=== PATIENT | female | born 1940 | race Two or more races ===

== ENCOUNTER 2018-05-22 14:50 | Inpatient (IN) | payer MEDICARE, MEDICAID ==
[~2018-05-22] VITALS: Ht 152.4 cm; Wt 53.5 kg
[2018-05-22] MEDS ORDERED: LORA-259 PO (15:03)
[2018-05-22] MEDS ORDERED: IV NORMAL SALINE 1000 ML BAG IV ONE (15:30)
[2018-05-22] MEDS ORDERED: ONDANSETRON 4 MG/2 ML VIAL IV ONE (15:30)
--- NOTE | 2018-05-22 15:30 | NUR ---
PT REFUSED CT SCAN.
[2018-05-22 15:39] LABS: BASOPHILS % (AUTO) 0.2 % (0.0-2.0); EOSINOPHILS % (AUTO) 0.4 % (0.0-7.0); HEMATOCRIT 26.5 % (31.2-41.9); HEMOGLOBIN 8.5 g/dL (10.9-14.3); LYMPHOCYTES # (AUTO) 0.6 K/uL (20.0-40.0); MEAN CORPUSCULAR HEMOGLOBIN 26.7 uug (24.7-32.8); MEAN CORPUSCULAR HGB CONC 32 g/dL (32.3-35.6); MEAN CORPUSCULAR VOLUME 83.7 fL (75.5-95.3); MONOCYTES # (AUTO) 0.3 K/uL (2.0-10.0); MONOCYTES % (AUTO) 4.8 % (0.0-11.0); NEUTROPHILS # (AUTO) 5.6 K/uL (1.8-8.9); NEUTROPHILS % (AUTO) 85.6 % (38.5-71.5); PLATELET COUNT (AUTO) 279 K/uL (179-408); RED BLOOD CELL COUNT(AUTO) 3.17 MIL/uL (3.63-4.92); WHITE BLOOD COUNT (AUTO) 6.5 K/uL (3.8-11.8)
[2018-05-22 16:00] LABS: CARBON DIOXIDE 29 mmol/L (21-32); CHLORIDE 106 mmol/L (98-107); CREATININE 0.5 mg/dL (0.6-1.3); GLUCOSE 100 mg/dL (74-106); POTASSIUM 3.9 mmol/L (3.5-5.1); UREA NITROGEN, BLOOD 7 mg/dL (7-18)
[2018-05-22 16:02] LABS: *BILIRUBIN,URIN NEGATIVE (NEGATIVE); *BLOOD, URINE NEGATIVE (NEGATIVE); *CLARITY,URINE CLEAR (CLEAR); *COLOR,URINE LIGHT YELLOW (YELLOW); *KETONES,URINE NEGATIVE (NEGATIVE); *PROTEIN,URINE NEGATIVE (NEGATIVE); *UROBILINOGEN,URINE 0.2 E.U./dl (NORMAL); LEUKOCYTE ESTERASE ,URINE NEGATIVE (NEGATIVE); NITRITE, URINE NEGATIVE (NEGATIVE); PH,URINE 8.5 (5.0-8.0); UGLUCOSE NEGATIVE (NEGATIVE)
[2018-05-22 16:05] LABS: ALANINE AMINOTRANSFERASE 23 U/L (14-59); ALKALINE PHOSPHATASE 70 U/L (50-136); ASPARTATE AMINOTRANSFERASE 22 U/L (15-37); BILIRUBIN,DIRECT 0.1 mg/dL (0.0-0.2); BILIRUBIN,TOTAL 0.3 mg/dL (0.2-1.0); LIPASE 197 U/L (73-393); TOTAL PROTEIN, SERUM 5.8 g/dL (6.4-8.2)
[2018-05-22 16:16] LABS: SQUAMOUS EPITHELIAL CELL,UR FEW /HPF (NONE SEEN); WBC,URINE 0-3 /HPF (0-3)
[2018-05-22] MEDS ORDERED: ONDANSETRON 4 MG/2 ML VIAL ONE ×4 (16:41→21:13)
[2018-05-22] MEDS ORDERED: PANTOPRAZOLE SODIUM 40 MG VIAL ONE ×2 (16:57→18:30)
[2018-05-22] MEDS ORDERED: PANTOPRAZOLE SODIUM IV 40 MG in IV DEXTROSE 5% 100 ML IV ONE (17:00)
[2018-05-22] MEDS ORDERED: MORPHINE SULFATE 4 MG/1 ML DISP.SYRIN ONE ×2 (17:17→18:29)
[2018-05-22] MEDS ORDERED: MORPHINE SULFATE 4 MG/1 ML DISP.SYRIN IV ONE (17:30)
[2018-05-22] MEDS ORDERED: ONDANSETRON IV *ER 4 MG/2 ML VIAL IV ONE ×2 (17:30→21:15)
--- NOTE | 2018-05-22 20:31 | NUR ---
Pt awake, alert, oriented x3. No sob noted. No s/sx of distress noted. Pt is crying, reassured and redirected. pt stated that she took Tylenol 650mg PO at 1900 without telling the nurse. will cont to monitor. Call light within reach.
--- NOTE | 2018-05-22 21:49 | NUR ---
Pt is nauseated. Zofran is given. MD at bedside, explained to pt and son plan of care. Pt and son verbalized understanding. Pt needs reenforcement of instructions re: NPO status. Report given to MAL Reis. Will cont to monitor.
--- NOTE | 2018-05-22 21:50 | NUR ---
Pt refused to change into a gown. pt refused to receive any pain medication through the IV at this time; pt stated "in an hour."
--- NOTE | 2018-05-22 22:23 | NUR ---
Pt. admitted to [facility] , under care of Dr. Serra Belongs List completed
[2018-05-22 22:30] VITALS: BP 116/43
[2018-05-22] MEDS ORDERED: methylPREDNISolone SOD SUCC 125 MG/2 ML VIAL IV ONE (23:15)
[2018-05-22] MEDS ORDERED: MORPHINE SULFATE 4 MG/1 ML DISP.SYRIN IV PRN (23:15)
[2018-05-22] MEDS ORDERED: Z GUARD REMEDY PASTE 57 GM TUBE TOP PRN (23:15)
[2018-05-22] MEDS ORDERED: ACETAMINOPHEN 650 MG SUPP.RECT RC PRN (23:15)
[2018-05-22] MEDS ORDERED: ONDANSETRON 4 MG/2 ML VIAL IV PRN (23:15)
[2018-05-23] MEDS ORDERED: LORAZEPAM 2 MG/1 ML VIAL IV PRN
[2018-05-23] MEDS: IV D5/ 0.9% NACL 1,000 ML IV PRN ×2 (00:29→11:05)
[2018-05-23 04:00] VITALS: BP 115/37
[2018-05-23] MEDS ORDERED: methylPREDNISolone SOD SUCC 125 MG/2 ML VIAL IV SCH (06:00)
--- NOTE | 2018-05-23 07:25 | NUR ---
NURSING NOTES ADMITTED PATIENT TO ROOM 210' REFUSED TO WEAR HOSP GOWN BUT PUT IT ON TOP OF HER CLOTHES; NEW IV PLACED TO RIGHT WRIST G22, PREVIOUS IV TISSUED; INSTRUCTED TO ELEVATE; PT ANXIOUS AND ALSO NPO, REFERRED TO DR GROVE AND ORDERED ATIVAN AND IVF; REFUSED AM LABS AT THIS TIME; NODULIZER INSTRUCTED TO COME BACK. KUB FF THROUGH ONGOING; ENDORSED TO NURSE COHEN FOR CONTINUITY OF CARE; CONTINUE PLAN OF CARE.
[2018-05-23] MEDS ORDERED: PANTOPRAZOLE SODIUM 40 MG VIAL IV SCH (09:00)
[2018-05-23] MEDS: AZATHIOPRINE 50 MG TABLET PO SCH ×2 (09:00→10:47)
[2018-05-23 11:35] VITALS: BP 132/27
--- NOTE | 2018-05-23 13:32 | NUR ---
RECEIVED PT FROM PREVIOUS NURSE. PT IS VERY ANXIOUS AND TALKATIVE, AND WANTS TO GO AMA. PT EDUCATION DONE WITH PT ABOUT HER CONDITION, BUT PT INSIST ON LEAVING. CHARGE NURSE SPOKE WITH PT, WELL NURSE PARTITIONER AND STUDENT CUSTOMER STRATEGY MANAGER. EDUCATION DONE WITH PT SON, WHO IS AGREEING TO TAKE HER HOME. PT LEAVING WITH SON AMA.
== END 2018-05-23 13:50 | disposition left against medical advice (07) | DRG 386 ==
LOC: ER 14:50 → MED 22:03
PROVIDERS: ADMIT Nurse Practitioner Acute Care; ATTEND Registered Nurse
DX: K50.912 Crohn's disease, unspecified, with intestinal obstruction (principal); E44.1 Mild protein-calorie malnutrition; D63.8 Anemia in other chronic diseases classified elsewhere; Z68.23 Body mass index [BMI] 23.0-23.9, adult; Z82.49 Family history of ischemic heart disease and other diseases of the circulatory system; F41.9 Anxiety disorder, unspecified; K57.30 Diverticulosis of large intestine without perforation or abscess without bleeding; Z90.49 Acquired absence of other specified parts of digestive tract
CPT/HCPCS: 36415; 70030-TC; 83690; 85025; 85730; 93005; A4663; C9113; J2060; J2270; J2405; J2930; J7030; J7042; J7500

== ENCOUNTER 2018-12-12 19:41 | Inpatient (IN) | payer MEDICARE, MEDICAID ==
[~2018-12-12] VITALS: Ht 137.2 cm; Wt 46.3 kg
[~2018-12-12 19:41] MED LIST: LORA-259 PO
--- NOTE | 2018-12-12 20:00 | NUR ---
Dr. Cohn at bedside for MSE.
[2018-12-12] MEDS ORDERED: HYDROMORPHONE 1 MG/1 ML DISP.SYRIN IV ONE (20:15)
[2018-12-12] MEDS ORDERED: ONDANSETRON 4 MG/2 ML VIAL IV ONE (20:15)
[2018-12-12] MEDS ORDERED: ONDANSETRON 4 MG/2 ML VIAL ONE (20:24)
[2018-12-12] MEDS ORDERED: HYDROMORPHONE 1 MG/1 ML DISP.SYRIN ONE (20:24)
[2018-12-12 20:31] LABS: BASOPHILS % (AUTO) 0.1 % (0.0-2.0); EOSINOPHILS % (AUTO) 0.2 % (0.0-7.0); HEMATOCRIT 34.7 % (31.2-41.9); HEMOGLOBIN 10.8 g/dL (10.9-14.3); LYMPHOCYTES # (AUTO) 0.4 K/uL (20.0-40.0); LYMPHOCYTES % (AUTO) 3.7 % (20.5-51.5); MEAN CORPUSCULAR HEMOGLOBIN 25.2 uug (24.7-32.8); MEAN CORPUSCULAR HGB CONC 31 g/dL (32.3-35.6); MEAN CORPUSCULAR VOLUME 81.5 fL (75.5-95.3); MONOCYTES # (AUTO) 0.4 K/uL (2.0-10.0); MONOCYTES % (AUTO) 3.6 % (0.0-11.0); NEUTROPHILS # (AUTO) 10.5 K/uL (1.8-8.9); NEUTROPHILS % (AUTO) 92.4 % (38.5-71.5); PLATELET COUNT (AUTO) 239 K/uL (179-408); RED BLOOD CELL COUNT(AUTO) 4.26 MIL/uL (3.63-4.92); WHITE BLOOD COUNT (AUTO) 11.4 K/uL (3.8-11.8)
--- NOTE | 2018-12-12 20:38 | NUR ---
Pt provided urine sample, sent to lab.
[2018-12-12 20:39] LABS: CARBON DIOXIDE 31 mmol/L (21-32); CHLORIDE 100 mmol/L (98-107); CREATININE 0.5 mg/dL (0.6-1.3); GLUCOSE 107 mg/dL (74-106); POTASSIUM 3.7 mmol/L (3.5-5.1); UREA NITROGEN, BLOOD 12 mg/dL (7-18)
[2018-12-12] MEDS ORDERED: IV D5W-0.45% NS +20 KCL 1,000 ML IV ONE (20:40)
--- NOTE | 2018-12-12 20:42 | NUR ---
Pt out of ER for CT.
[2018-12-12 20:44] LABS: *BILIRUBIN,URIN NEGATIVE (NEGATIVE); *BLOOD, URINE NEGATIVE (NEGATIVE); *KETONES,URINE 1+ (NEGATIVE); *UROBILINOGEN,URINE 0.2 E.U./dl (NORMAL); LEUKOCYTE ESTERASE ,URINE 1+ (NEGATIVE); NITRITE, URINE NEGATIVE (NEGATIVE); PH,URINE 7.5 (5.0-8.0); UGLUCOSE NEGATIVE (NEGATIVE)
[2018-12-12 20:45] LABS: ALANINE AMINOTRANSFERASE 30 U/L (14-59); ALKALINE PHOSPHATASE 89 U/L (50-136); ASPARTATE AMINOTRANSFERASE 35 U/L (15-37); BILIRUBIN,DIRECT 0.1 mg/dL (0.0-0.2); BILIRUBIN,TOTAL 0.3 mg/dL (0.2-1.0); LIPASE 122 U/L (73-393); TOTAL PROTEIN, SERUM 6.2 g/dL (6.4-8.2)
[2018-12-12 20:51] LABS: *CLARITY,URINE CLOUDY (CLEAR); *COLOR,URINE YELLOW (YELLOW)
[2018-12-12 20:52] LABS: RBC,URINE 0-3 /HPF (0-3)
[2018-12-12 20:53] LABS: SQUAMOUS EPITHELIAL CELL,UR MANY /HPF (NONE SEEN); URINE AMORPHOUS PHOSPHATES MANY /HPF
--- NOTE | 2018-12-12 20:54 | NUR ---
Pt back to ER from CT.
--- NOTE | 2018-12-12 21:40 | NUR ---
Dr. Cohn on panel call with Sofía Sánchez NP. Patient accepted for admission to [facility], diagnosis: bowel obstruction.
--- NOTE | 2018-12-12 21:43 | NUR ---
Dr. Cohn speaking with Dr. Art Long general surgery.
--- NOTE | 2018-12-12 21:46 | NUR ---
Report given to Selma RESENDEZ Medsurg.
[2018-12-12] MEDS ORDERED: IV NS 1000 ML 1,000 ML IV PRN (22:02)
[2018-12-12] MEDS ORDERED: MAGNESIUM HYDROXIDE 30 ML LIQUID UDC PO PRN (22:15)
[2018-12-12] MEDS ORDERED: CEFTRIAXONE 1 G in IV DEXTROSE 5% 50 ML IV SCH (22:15)
[2018-12-12] MEDS ORDERED: ONDANSETRON 4 MG/2 ML VIAL IV PRN (22:15)
[2018-12-12] MEDS ORDERED: METOCLOPRAMIDE HCL 10 MG/2 ML VIAL IV PRN (22:15)
[2018-12-12] MEDS ORDERED: ACETAMINOPHEN 325 MG TABLET PO PRN (22:15)
[2018-12-12] MEDS ORDERED: Z GUARD REMEDY PASTE 57 GM TUBE TOP PRN (22:15)
[2018-12-12] MEDS ORDERED: LORAZEPAM 2 MG/1 ML VIAL IV PRN (22:30)
--- NOTE | 2018-12-12 22:38 | NUR ---
received pt from er via stretcher to room 319 settled in well v/s and assessment done same stable,pt refuse ngt insertion and xray want to bret espinal md to see her in the morning first.
--- NOTE | 2018-12-12 22:40 | NUR ---
notified of pt refusal of care ,noted md stated she will see patient in am
--- NOTE | 2018-12-12 22:51 | NUR ---
daughter at bedside pt in no distress at this time
--- NOTE | 2018-12-13 | NUR ---
pt and daughter refuse ngt placement want to wait for md in am
[2018-12-13] MEDS ORDERED: CEFTRIAXONE 1 G VIAL ONE (00:58)
--- NOTE | 2018-12-13 04:00 | NUR ---
pt refuse blood draw
[2018-12-13 05:45] VITALS: BP 89/37
[2018-12-13] MEDS: MORPHINE SULFATE 2 MG/1 ML DISP.SYRIN IV PRN ×2 (06:54→11:51)
--- NOTE | 2018-12-13 07:00 | NUR ---
pt c/o abdominal pain requested morphine same given for abdominal pain
[2018-12-13] MEDS ORDERED: PANTOPRAZOLE SODIUM 40 MG VIAL IV SCH (09:00)
[2018-12-13] MEDS ORDERED: FAMOTIDINE. 20 MG/2 ML VIAL IV SCH (15:45)
[2018-12-13 16:00] VITALS: BP 114/44
[2018-12-13] MEDS ORDERED: NITR100C11 PO (16:22)
--- NOTE | 2018-12-13 16:30 | NUR ---
NG TUBE D/C'D DR. KAT IN TO SEE PT. AND REVIEW ALL FOLLOW-UP AND HOME CARE IV D/C'D PHARMACIST IN TO REVIEW ALL HOME MEDS HOME INSTRUCTIONS REVIEWED WITH PT. AND PT'S. DAUGHTER 1700 DISCHARGED TO DAUGHTER TO HOME.
[2018-12-13] MEDS ORDERED: LORAZEPAM 1 MG TABLET PO SCH (21:00)
[2018-12-13] MEDS ORDERED: DOCUSATE SODIUM 250 MG CAPSULE PO SCH (21:00)
== END 2018-12-13 17:00 | disposition home or self-care (01) | DRG 386 ==
LOC: ER 19:43 → MEDSURG3 21:51
PROVIDERS: ADMIT Registered Nurse; ATTEND Internal Medicine
PROC: 0D9670Z Drainage of Stomach with Drainage Device, Via Natural or Artificial Opening (ICD-10-PCS; principal; 2018-12-13)
DX: K50.912 Crohn's disease, unspecified, with intestinal obstruction (principal); E44.1 Mild protein-calorie malnutrition; N39.0 Urinary tract infection, site not specified; Z90.49 Acquired absence of other specified parts of digestive tract; D63.8 Anemia in other chronic diseases classified elsewhere; Z68.24 Body mass index [BMI] 24.0-24.9, adult; I70.0 Atherosclerosis of aorta; M81.0 Age-related osteoporosis without current pathological fracture; K56.41 Fecal impaction; D50.9 Iron deficiency anemia, unspecified; G47.00 Insomnia, unspecified
CPT/HCPCS: 36415; 71045; 83690; 85025; 87086; A4663; G0378; J0696; J1170; J2270; J2405; J3490; J7030; J7060

== ENCOUNTER 2019-03-04 19:16 | Inpatient (IN) | payer MEDICARE, MEDICAID ==
[~2019-03-04] VITALS: Ht 137.2 cm; Wt 45.8 kg
[~2019-03-04 19:16] MED LIST changes: +NITR100C11 PO
[2019-03-04] MEDS ORDERED: MAGN296S70 PO (19:41)
[2019-03-04] MEDS ORDERED: POLY17PO4 PO (19:41)
[2019-03-04] MEDS ORDERED: DOCU-141 PO (19:41)
[2019-03-04] MEDS ORDERED: LORA1TAB PO (19:42)
[2019-03-04] MEDS ORDERED: ONDANSETRON 4 MG/2 ML VIAL IV ONE (20:15)
[2019-03-04] MEDS ORDERED: IV NORMAL SALINE 1000 ML BAG IV ONE (20:15)
[2019-03-04 20:28] LABS: *BILIRUBIN,URIN NEGATIVE (NEGATIVE); *BLOOD, URINE NEGATIVE (NEGATIVE); *CLARITY,URINE SLIGHTLY CLOUDY (CLEAR); *COLOR,URINE YELLOW (YELLOW); *KETONES,URINE 1+ (NEGATIVE); *UROBILINOGEN,URINE 0.2 E.U./dl (NORMAL); LEUKOCYTE ESTERASE ,URINE TRACE (NEGATIVE); NITRITE, URINE NEGATIVE (NEGATIVE); PH,URINE 8.5 (5.0-8.0); UGLUCOSE NEGATIVE (NEGATIVE)
[2019-03-04] MEDS ORDERED: ONDANSETRON 4 MG/2 ML VIAL ONE (20:28)
[2019-03-04 20:36] LABS: BASOPHILS % (AUTO) 0.2 % (0.0-2.0); HEMATOCRIT 29.2 % (31.2-41.9); HEMOGLOBIN 8.8 g/dL (10.9-14.3); LYMPHOCYTES # (AUTO) 0.5 K/uL (20.0-40.0); LYMPHOCYTES % (AUTO) 4.2 % (20.5-51.5); MEAN CORPUSCULAR HEMOGLOBIN 23.8 uug (24.7-32.8); MEAN CORPUSCULAR HGB CONC 30 g/dL (32.3-35.6); MONOCYTES # (AUTO) 0.3 K/uL (2.0-10.0); MONOCYTES % (AUTO) 2.9 % (0.0-11.0); NEUTROPHILS # (AUTO) 10.1 K/uL (1.8-8.9); NEUTROPHILS % (AUTO) 92.7 % (38.5-71.5); PLATELET COUNT (AUTO) 253 K/uL (179-408); WHITE BLOOD COUNT (AUTO) 10.9 K/uL (3.8-11.8)
[2019-03-04 20:43] LABS: ALANINE AMINOTRANSFERASE 22 U/L (14-59); ALKALINE PHOSPHATASE 71 U/L (50-136); ASPARTATE AMINOTRANSFERASE 22 U/L (15-37); BILIRUBIN,DIRECT 0.1 mg/dL (0.0-0.2); BILIRUBIN,TOTAL 0.3 mg/dL (0.2-1.0); CARBON DIOXIDE 33 mmol/L (21-32); CHLORIDE 104 mmol/L (98-107); CREATININE 0.6 mg/dL (0.6-1.3); GLUCOSE 144 mg/dL (74-106); LIPASE 247 U/L (73-393); MUCUS,URINE MODERATE /LPF (0-FEW); POTASSIUM 3.9 mmol/L (3.5-5.1); SQUAMOUS EPITHELIAL CELL,UR MODERATE /HPF (NONE SEEN); UREA NITROGEN, BLOOD 10 mg/dL (7-18); URINE AMORPHOUS PHOSPHATES MODERATE /HPF
[2019-03-04] MEDS ORDERED: PANTOPRAZOLE SODIUM 40 MG VIAL IV ONE (20:45)
[2019-03-04] MEDS ORDERED: PANTOPRAZOLE SODIUM 40 MG VIAL ONE (20:49)
[2019-03-04 20:55] LABS: BAND % (MANUAL) 4 % (0-10); LYMPHOCYTES % (MANUAL) 8 % (20-40); MONOCYTES % (MANUAL) 2 % (2-10); NEUTROPHILS % (MANUAL) 86 % (42-75)
[2019-03-04] MEDS ORDERED: PIPERACILLIN SODIUM/TAZOBACTAM 3.375 G in IV DEXTROSE 5% 50 ML IV ONE (21:00)
[2019-03-04] MEDS ORDERED: MORPHINE SULFATE 4 MG/1 ML DISP.SYRIN IV ONE (21:00)
[2019-03-04] MEDS ORDERED: MORPHINE SULFATE 4 MG/1 ML DISP.SYRIN ONE (21:03)
[2019-03-04] MEDS ORDERED: PIPERACILLIN SODIUM/TAZO 3.375 GM VIAL ONE (21:08)
[2019-03-04] MEDS ORDERED: ACETAMINOPHEN 325 MG TABLET PO PRN (21:30)
[2019-03-04] MEDS ORDERED: MORPHINE SULFATE 2 MG/1 ML DISP.SYRIN IV PRN (21:30)
[2019-03-04] MEDS ORDERED: Z GUARD REMEDY PASTE 57 GM TUBE TOP PRN (21:30)
[2019-03-04] MEDS ORDERED: IV NS 1000 ML 1,000 ML IV PRN (21:30)
[2019-03-04] MEDS ORDERED: ONDANSETRON 4 MG/2 ML VIAL IV PRN (21:30)
[2019-03-04] MEDS ORDERED: MAGNESIUM HYDROXIDE 30 ML LIQUID UDC PO PRN (21:30)
[2019-03-04] MEDS ORDERED: LORAZEPAM 2 MG/1 ML VIAL IV PRN (22:15)
[2019-03-04 22:21] VITALS: BP 116/45
[2019-03-04] MEDS ORDERED: MAGNESIUM CITRATE 296 ML BOTTLE PO SCH (22:30)
[2019-03-04] MEDS ORDERED: MIRALAX 17 GM POWD.PACK PO SCH (22:30)
[2019-03-05 05:00] VITALS: BP 99/45
[2019-03-05] MEDS ORDERED: MAGNESIUM CITRATE 296 ML BOTTLE PO PRN (08:30)
[2019-03-05] MEDS ORDERED: FAMOTIDINE. 20 MG/2 ML VIAL IV SCH (09:00)
[2019-03-05] MEDS ORDERED: MORPHINE SULFATE 2 MG/1 ML DISP.SYRIN IV PRN (09:45)
[2019-03-05] MEDS ORDERED: DIATR MEGLU/DIATRIZOATE SODIUM 30 ML SOLUTION ONE (10:11)
[2019-03-05 11:08] VITALS: BP 94/38
[2019-03-05] MEDS ORDERED: DOCUSATE SODIUM 100 MG CAPSULE PO SCH (21:00)
== END 2019-03-05 12:30 | disposition home or self-care (01) | DRG 389 ==
LOC: ER 19:18 → MEDSURG3 21:46
PROVIDERS: ADMIT Nurse Practitioner Acute Care; ATTEND Nurse Practitioner Acute Care
DX: K56.609 Unspecified intestinal obstruction, unspecified as to partial versus complete obstruction (principal); K50.90 Crohn's disease, unspecified, without complications; N39.0 Urinary tract infection, site not specified; Z90.49 Acquired absence of other specified parts of digestive tract; G47.00 Insomnia, unspecified; D63.8 Anemia in other chronic diseases classified elsewhere; M81.0 Age-related osteoporosis without current pathological fracture; K29.70 Gastritis, unspecified, without bleeding; I70.0 Atherosclerosis of aorta; E88.09 Other disorders of plasma-protein metabolism, not elsewhere classified
CPT/HCPCS: 36415; 70030-TC; 71045; 83690; 85025; 85730; 93005; A4663; C9113; G0378; J2060; J2270; J2405; J2543; J7030; J7060; Q9963

== ENCOUNTER 2019-05-21 19:56 | Inpatient (IN) | payer MEDICARE, MEDICAID ==
[~2019-05-21] VITALS: Ht 152.4 cm; Wt 62.6 kg
[~2019-05-21 19:56] MED LIST changes: +DOCU-141 PO; -LORA-259 PO; +LORA1TAB PO; +MAGN296S70 PO; -NITR100C11 PO; +POLY17PO4 PO
[2019-05-21] MEDS ORDERED: ONDANSETRON 4 MG/2 ML VIAL ONE ×2 (20:33→23:10)
[2019-05-21] MEDS ORDERED: MORPHINE SULFATE 2 MG/1 ML DISP.SYRIN ONE (20:34)
[2019-05-21 20:41] LABS: CARBON DIOXIDE 32 mmol/L (21-32); CHLORIDE 99 mmol/L (98-107); CREATININE 0.5 mg/dL (0.6-1.3); GLUCOSE 109 mg/dL (74-106); POTASSIUM 4.5 mmol/L (3.5-5.1); UREA NITROGEN, BLOOD 10 mg/dL (7-18)
[2019-05-21 20:42] LABS: BASOPHILS # (AUTO) 0.1 K/uL (0.0-8.0); BASOPHILS % (AUTO) 0.6 % (0.0-2.0); EOSINOPHILS % (AUTO) 0.3 % (0.0-7.0); HEMATOCRIT 34.2 % (31.2-41.9); HEMOGLOBIN 10.2 g/dL (10.9-14.3); LYMPHOCYTES # (AUTO) 0.9 K/uL (20.0-40.0); LYMPHOCYTES % (AUTO) 9.3 % (20.5-51.5); MEAN CORPUSCULAR HEMOGLOBIN 23.2 uug (24.7-32.8); MEAN CORPUSCULAR HGB CONC 30 g/dL (32.3-35.6); MEAN CORPUSCULAR VOLUME 77.6 fL (75.5-95.3); MONOCYTES # (AUTO) 0.6 K/uL (2.0-10.0); MONOCYTES % (AUTO) 5.9 % (0.0-11.0); NEUTROPHILS # (AUTO) 8.1 K/uL (1.8-8.9); NEUTROPHILS % (AUTO) 83.9 % (38.5-71.5); PLATELET COUNT (AUTO) 294 K/uL (179-408); WHITE BLOOD COUNT (AUTO) 9.7 K/uL (3.8-11.8)
[2019-05-21 20:45] LABS: ALANINE AMINOTRANSFERASE 21 U/L (14-59); ALKALINE PHOSPHATASE 60 U/L (50-136); ASPARTATE AMINOTRANSFERASE 32 U/L (15-37); BILIRUBIN,DIRECT 0.1 mg/dL (0.0-0.2); BILIRUBIN,TOTAL 0.1 mg/dL (0.2-1.0); LIPASE 258 U/L (73-393); TOTAL PROTEIN, SERUM 6.3 g/dL (6.4-8.2)
[2019-05-21] MEDS ORDERED: ONDANSETRON 4 MG/2 ML VIAL IV ONE ×2 (20:45→23:00)
[2019-05-21] MEDS ORDERED: MORPHINE SULFATE 2 MG/1 ML DISP.SYRIN IV ONE (20:45)
--- NOTE | 2019-05-21 21:21 | NUR ---
Patient is resting comfortably in bed with eyes closed
[2019-05-21] MEDS ORDERED: MORPHINE SULFATE 4 MG/1 ML DISP.SYRIN IV ONE (22:30)
[2019-05-21] MEDS ORDERED: MORPHINE SULFATE 4 MG/1 ML DISP.SYRIN ONE (22:33)
[2019-05-21] MEDS ORDERED: HYDROMORPHONE 1 MG/1 ML DISP.SYRIN IV ONE (23:00)
[2019-05-21] MEDS ORDERED: IV NORMAL SALINE 1000 ML BAG IV ONE (23:00)
[2019-05-21] MEDS ORDERED: HYDROMORPHONE 1 MG/1 ML DISP.SYRIN ONE (23:10)
--- NOTE | 2019-05-22 00:10 | NUR ---
MADDIE CALLED FOR ADMISSION WAITING FOR CALLBACK
--- NOTE | 2019-05-22 00:25 | NUR ---
Pt. admitted to [facility], under care of FELICITA GROVE DNP Belongs List completed
--- NOTE | 2019-05-22 00:45 | NUR ---
PATIENT RECEIVED BY ER VIA [facility] WITH BELONGINGS, PATIENT IS ABLE TO AMBULATE ALONE, IS STEADY. PATIENT IS ALERT AND ORIENTED X 4 ABLE TO UNDERSTAND AND SPEAK YORUBA. PATIENT HAD 1 EPISODE OF VOMITING WHILE TRANSFERRING. PATIENT REFUSED TO PUT ON HOSPITAL GOWN SHE PREFERS TO WEAR OWN CLOTHES AT THIS TIME. SKIN ASSESSMENT DONE, NO SKIN ISSUES NOTED. PHYSICAL ASSESSMENT DONE, NOTED WITH MILD DISTENDED ABDOMEN . SHE IS COMPLAINING OF ABDOMEN DISCOMFORT, PLACED HOB SEMI FOWLERS,BED IN LOWEST POSITION , SIDE RAILS UP X 2, BED ALARM ON FOR SAFETY. ORIENTED PATIENT TO ROOM AND CALL LIGHT. CALL LIGHT PLACED WITHIN REACH.
[2019-05-22 01:30] VITALS: BP 145/59
[2019-05-22] MEDS ORDERED: IV D5 1/2 NS 1000 ML 1,000 ML IV PRN (02:17)
[2019-05-22] MEDS ORDERED: Z GUARD REMEDY PASTE 57 GM TUBE TOP PRN (02:30)
[2019-05-22] MEDS ORDERED: LORAZEPAM 1 MG TABLET PO PRN (02:30)
[2019-05-22] MEDS ORDERED: ONDANSETRON 4 MG/2 ML VIAL IV PRN (02:30)
[2019-05-22] MEDS ORDERED: ACETAMINOPHEN 325 MG TABLET PO PRN (02:30)
[2019-05-22] MEDS ORDERED: HYDROCODONE/APAP 5-325MG TABLET PO PRN (02:30)
[2019-05-22] MEDS ORDERED: FLEET ENEMA 133 ML BOTTLE RC ONE ×2 (02:30→03:24)
[2019-05-22] MEDS ORDERED: MORPHINE SULFATE 2 MG/1 ML DISP.SYRIN IV PRN (02:30)
--- NOTE | 2019-05-22 02:40 | NUR ---
PATIENT REFUSED TO TAKE MAGNESIUM CITRATE AND FLEET ENEMA THAT WAS ORDERED, EXPLAINED RISKS AND BENEFITS PATIENT UNDERSTANDS, PER PATIENT JUST WOULD LIKE TO SLEEP RIGHT NOW. WILL TRY AGAIN IN AM
[2019-05-22] MEDS ORDERED: MAGNESIUM CITRATE 296 ML BOTTLE PO ONE (02:45)
[2019-05-22] MEDS ORDERED: MAGNESIUM CITRATE 296 ML BOTTLE ONE (03:24)
[2019-05-22 05:24] VITALS: BP 126/51
--- NOTE | 2019-05-22 07:06 | NUR ---
PATIENT REFUSED BLOOD DRAW WOULD LIKE FOR THEM TO DRAW BLOOD AT 9AM. PATIENT C/O OF MILD DISCOMFORT OF ABDOMEN, 1 EPISODE OF EMESIS OF UNDIGESTED FOOD, NO BLOOD OR COFFEE GROUND EMESIS. ENDORSED TO AM SHIFT TO ENCOURAGED ENEMA AND MAGNESIUM CITRATE
--- NOTE | 2019-05-22 07:56 | NUR ---
Received pt. in bed, A/Ox4, Farsi speaking. No acute distress. On RA and tolerating well. LW 20G remain patent and intact, on D5 1/2NS @ 75ml/hr with no s/sx of fluid overload. All needs attended and met at this time. Safety measures in place. Will continue to monitor.
--- NOTE | 2019-05-22 08:15 | NUR ---
Pt. refusing care this AM. Refused Fleet enema and mag citrate x 3. Risk and benefits discussed with pt. No episode of N/V, IV fluid running on 75 ml/hr. Pt. adamant about discharging now, explained to patient discharge process and verbalized understanding. Pt. requested to sign AMA stated "My son is on his way to pick me up." Notified attending TESTING ANALYST and charge nurse promptly.
--- NOTE | 2019-05-22 09:30 | NUR ---
Discharge note: Pt. requested to be discharge home via AMA. STRAIGHT KNIFE MACHINE CUTTER aware and amenable. Pt's son at bedside agreeable. Pt. insisted to leave against medical advice even after providing risks that includes continued illness, worsening of symptoms, permanent disability, possibility of re-hospitalization and . Pt and family member made aware to call primary physician upon discharge. AMA form signed by pt., all pt. inventory provided. No further questions from resident and family member at this time. VS refused to be taken and skin assessment. IV access d/c and tolerated well. ID band removed. Resident left via wheelchair, no complaint of SOB, no change in LOC, no complaint of pain at this time.
== END 2019-05-22 09:30 | disposition left against medical advice (07) | DRG 389 ==
LOC: ER 19:59 → MEDSURG3 05-22 00:20
PROVIDERS: ADMIT Nurse Practitioner Acute Care; ATTEND Nurse Practitioner Acute Care
DX: K56.600 Partial intestinal obstruction, unspecified as to cause (principal); K50.90 Crohn's disease, unspecified, without complications; E44.1 Mild protein-calorie malnutrition; M81.0 Age-related osteoporosis without current pathological fracture; K83.8 Other specified diseases of biliary tract; K29.70 Gastritis, unspecified, without bleeding; I70.0 Atherosclerosis of aorta; Z68.27 Body mass index [BMI] 27.0-27.9, adult; Z90.49 Acquired absence of other specified parts of digestive tract; Z98.890 Other specified postprocedural states; Z91.19 Patient's noncompliance with other medical treatment and regimen
CPT/HCPCS: 36415; 70030-TC; 71045; 83690; 85025; 85730; 93005; A4663; G0378; J1170; J2270; J2405; J3490; J7030

== ENCOUNTER 2021-02-13 20:43 | Inpatient (IN) | payer MEDICARE, OTHER ==
[~2021-02-13] VITALS: Ht 142.2 cm; Wt 38.6 kg
[~2021-02-13 20:43] MED LIST changes: +PIPERACILLIN SODIUM/TAZOBACTAM 3.375 G in IV DEXTROSE 5% 50 ML IV SCH
--- NOTE | 2021-02-13 21:20 | NUR ---
MD Farooq at bedside to do MSE.
[2021-02-13] MEDS ORDERED: MORPHINE SULFATE 2 MG/1 ML DISP.SYRIN IV ONE ×2 (21:30→23:15)
[2021-02-13] MEDS ORDERED: IV NORMAL SALINE 1000 ML BAG IV ONE (21:30)
[2021-02-13] MEDS ORDERED: ONDANSETRON 4 MG/2 ML VIAL IV ONE (21:30)
[2021-02-13 21:52] LABS: HEMATOCRIT 36.2 % (31.2-41.9); MEAN CORPUSCULAR HEMOGLOBIN 26.9 uug (24.7-32.8); MEAN CORPUSCULAR VOLUME 84.7 fL (75.5-95.3); PLATELET COUNT (AUTO) 258 K/uL (179-408)
[2021-02-13 21:58] LABS: CREATININE 0.6 mg/dL (0.6-1.3); POTASSIUM 3.7 mmol/L (3.5-5.1)
[2021-02-13] MEDS ORDERED: MORPHINE SULFATE 2 MG/1 ML DISP.SYRIN ONE (21:58)
[2021-02-13 22:12] LABS: BILIRUBIN,DIRECT 0.2 mg/dL (0.0-0.2); BILIRUBIN,TOTAL 0.4 mg/dL (0.2-1.0); TOTAL PROTEIN, SERUM 5.5 g/dL (6.4-8.2)
--- NOTE | 2021-02-13 22:22 | NUR ---
Patient is resting comfortably in bed, with daughter at bedside.
--- NOTE | 2021-02-13 22:30 | NUR ---
Patient states great improvement in pain after morphine; denies pain. Improvement in N/V after administration of Zofran. States she no longer feels nauseous or vomits.
--- NOTE | 2021-02-13 22:58 | NUR ---
[facility] called for panel call, MD Gallagher paged.
--- NOTE | 2021-02-13 23:04 | NUR ---
instrument/control technician Russel called to notify patient is COVID negative.
--- NOTE | 2021-02-13 23:05 | NUR ---
MD Gallagher called back and connected to MD Farooq.
--- NOTE | 2021-02-13 23:10 | NUR ---
Patient c/o of 8/10 abdominal pain. MD Farooq made aware. Verbal orders for 1mg of morphine given.
[2021-02-13 23:15] LABS: *BILIRUBIN,URIN NEGATIVE (NEGATIVE); *CLARITY,URINE CLOUDY (CLEAR); *COLOR,URINE YELLOW (YELLOW); *KETONES,URINE 2+ (NEGATIVE); *UROBILINOGEN,URINE 0.2 E.U./dl (NORMAL); LEUKOCYTE ESTERASE ,URINE TRACE (NEGATIVE); NITRITE, URINE NEGATIVE (NEGATIVE); PH,URINE 8.5 (5.0-8.0); UGLUCOSE NEGATIVE (NEGATIVE)
--- NOTE | 2021-02-13 23:21 | NUR ---
Report given to MAL Reis.
[2021-02-13 23:25] LABS: *BLOOD, URINE TRACE (NEGATIVE); BACTERIA,URINE NONE SEEN /HPF (NONE SEEN); RBC,URINE 0-3 /HPF (0-3); SQUAMOUS EPITHELIAL CELL,UR FEW /HPF (NONE SEEN); URINE AMORPHOUS PHOSPHATES MANY /HPF; WBC,URINE 0-3 /HPF (0-3)
[2021-02-13] MEDS ORDERED: ACETAMINOPHEN 650 MG SUPP.RECT RC PRN (23:30)
[2021-02-13] MEDS ORDERED: ONDANSETRON 4 MG/2 ML VIAL IV PRN (23:30)
--- NOTE | 2021-02-13 23:40 | NUR ---
Pt. admitted to med-surg 310, under care of Dr. Gallagher Belongs List completed
[2021-02-14 00:18] VITALS: BP 112/37
[2021-02-14] MEDS ORDERED: PIPERACILLIN SODIUM/TAZO 3.375 GM VIAL ONE (00:49)
[2021-02-14] MEDS ORDERED: LORAZEPAM 2 MG/1 ML VIAL IV ONE (01:00)
--- NOTE | 2021-02-14 03:51 | NUR ---
admitted to room 310; ambulatory; AAOx4; able to make needs known; kept NPO; new IV to left forearm; ativan given x1 per WARD AIDE Ke.
[2021-02-14 04:09] VITALS: BP 132/51
--- NOTE | 2021-02-14 08:00 | NUR ---
Pt denies any c/o abd pain. Bowel wound present x 4 quadrants. SBF intiated. Implemented High Fowlers position to prevent any aspiration and discussed with Pt. Pt agreeable with plan of care. PT is in no acute distress.
[2021-02-14] MEDS: PIPERACILLIN SODIUM/TAZOBACTAM 3.375 G in IV DEXTROSE 5% 100 ML IV SCH ×2 (08:59→17:19)
[2021-02-14] MEDS ORDERED: PANTOPRAZOLE SODIUM 40 MG VIAL IV SCH (09:00)
[2021-02-14] MEDS ORDERED: PIPERACILLIN SODIUM/TAZOBACTAM 3.37 G in IV DEXTROSE 5% 100 ML IV SCH (09:00)
[2021-02-14] MEDS ORDERED: PIPERACILLIN SODIUM/TAZOBACTAM 3.375 G in IV DEXTROSE 5% 100 ML IV SCH (09:00)
[2021-02-14] MEDS ORDERED: DIATR MEGLU/DIATRIZOATE SODIUM 30 ML BOTTLE ONE (09:38)
[2021-02-14 11:43] VITALS: BP 126/55
--- NOTE | 2021-02-14 12:30 | NUR ---
Dr Steven Winters spoke with pt and family on updates and plan for today. No coughing noted or s/s of aspiration from contrast noted - high ott position effective. Kept pt NPO as ordered.
[2021-02-14] MEDS ORDERED: MORPHINE SULFATE 2 MG/1 ML DISP.SYRIN IV PRN (13:45)
[2021-02-14 15:29] VITALS: BP 122/43
--- NOTE | 2021-02-14 18:05 | NUR ---
Small bowel follow through result given to FELICITA no new order received. Reinforce with pt and family member NPO status. Pt verbalized understanding. PT is in no acute distress.
[2021-02-14] MEDS: IV D5/ 0.9% NACL 1,000 ML IV PRN ×2 (20:00)
[2021-02-14 20:14] VITALS: BP 145/54
--- NOTE | 2021-02-14 21:25 | NUR ---
Patient AAOX3, no sob, no c/o pain noted, Patient want discharge / call Dr Serra and ARIELLE. call to family / Adjory, Robbie ( son), D/C home with son
== END 2021-02-14 21:30 | disposition left against medical advice (07) | DRG 389 ==
LOC: ER 20:45 → MEDSURG3 23:27
PROVIDERS: ADMIT Nurse Practitioner Acute Care; ATTEND Nurse Practitioner Acute Care
DX: K56.600 Partial intestinal obstruction, unspecified as to cause (principal); N39.0 Urinary tract infection, site not specified; K50.90 Crohn's disease, unspecified, without complications; E88.09 Other disorders of plasma-protein metabolism, not elsewhere classified; K29.70 Gastritis, unspecified, without bleeding; M81.0 Age-related osteoporosis without current pathological fracture; Z90.49 Acquired absence of other specified parts of digestive tract; Z98.1 Arthrodesis status; D72.829 Elevated white blood cell count, unspecified; Z20.822 Contact with and (suspected) exposure to COVID-19; Z98.890 Other specified postprocedural states
CPT/HCPCS: 36415; 70030-TC; 71045; 74250; 83605; 83690; 85025; 93005; A4663; C9113; G0378; J2060; J2270; J2405; J2543; J7030; J7060; Q9963

== ENCOUNTER 2021-12-25 15:25 | Inpatient (IN) | payer MEDICARE, OTHER ==
[~2021-12-25] VITALS: Ht 144.8 cm; Wt 45.4 kg
[~2021-12-25 15:25] MED LIST changes: -MAGN296S70 PO; -PIPERACILLIN SODIUM/TAZOBACTAM 3.375 G in IV DEXTROSE 5% 50 ML IV SCH; -POLY17PO4 PO
[2021-12-25] MEDS ORDERED: MORPHINE SULFATE 2 MG/1 ML DISP.SYRIN IV ONE (15:45)
[2021-12-25] MEDS ORDERED: ONDANSETRON 4 MG/2 ML VIAL IV ONE ×2 (15:45→18:15)
[2021-12-25] MEDS ORDERED: IV NORMAL SALINE 1000 ML BAG IV ONE (15:45)
[2021-12-25] MEDS ORDERED: ONDANSETRON 4 MG/2 ML VIAL ONE ×2 (16:03→18:14)
[2021-12-25] MEDS ORDERED: MORPHINE SULFATE 2 MG/1 ML DISP.SYRIN ONE (16:03)
[2021-12-25 16:29] LABS: CARBON DIOXIDE 31 mmol/L (21-32); CHLORIDE 97 mmol/L (98-107); CREATININE 0.4 mg/dL (0.6-1.3); GLUCOSE 99 mg/dL (74-106); POTASSIUM 3.7 mmol/L (3.5-5.1); UREA NITROGEN, BLOOD 9 mg/dL (7-18)
--- NOTE | 2021-12-25 16:30 | NUR ---
Pt back from CT, NAD noted. Pt states she is pain free at this time.
[2021-12-25 16:41] LABS: ALANINE AMINOTRANSFERASE 26 U/L (14-59); ALKALINE PHOSPHATASE 68 U/L (50-136); ASPARTATE AMINOTRANSFERASE 21 U/L (15-37); BILIRUBIN,DIRECT 0.1 mg/dL (0.0-0.2); BILIRUBIN,TOTAL 0.2 mg/dL (0.2-1.0); LIPASE 119 U/L (73-393); TOTAL PROTEIN, SERUM 5.5 g/dL (6.4-8.2)
[2021-12-25] MEDS ORDERED: MORPHINE SULFATE 4 MG/1 ML DISP.SYRIN ONE (17:03)
[2021-12-25] MEDS ORDERED: MORPHINE SULFATE 4 MG/1 ML DISP.SYRIN IV ONE (17:15)
[2021-12-25 17:18] LABS: HEMATOCRIT 36.7 % (31.2-41.9); MEAN CORPUSCULAR HEMOGLOBIN 28.4 uug (24.7-32.8); MEAN CORPUSCULAR VOLUME 86.1 fL (75.5-95.3); PLATELET COUNT (AUTO) 255 K/uL (179-408)
--- NOTE | 2021-12-25 17:45 | NUR ---
Pt was medicated with Ativan 0.5 mg IVP x 2 doses (total of 1mg) per verbal order by . Waste was witnessed by Avis Vázquez RN. Pharmacy note: Medication was removed under a different patient's account([id number]) from [employer] by accident by myself.
[2021-12-25] MEDS ORDERED: LORAZEPAM 2 MG/1 ML VIAL IV ONE (18:00)
--- NOTE | 2021-12-25 18:00 | NUR ---
Pt to be admitted to tele under Dr.Sam Tsai, DX: SBO. Called tele floor for bed assignment, no beds available at this time.
[2021-12-25] MEDS ORDERED: PANTOPRAZOLE SODIUM 40 MG VIAL ONE (18:14)
[2021-12-25] MEDS ORDERED: ONDANSETRON 4 MG/2 ML VIAL IV PRN (18:15)
[2021-12-25] MEDS ORDERED: PANTOPRAZOLE SODIUM IV 80 MG in IV DEXTROSE 5% 100 ML IV ONE (18:15)
--- NOTE | 2021-12-25 18:18 | NUR ---
Pt had an episode of small amout of emesis. Pt medicated with Zofran and Protonix as ordered.
--- NOTE | 2021-12-25 18:35 | NUR ---
Kelly hilario in [facility] - 12/25/21 at 1856 by DARRELL Pt stated he was going outside to "get some fresh air".
--- NOTE | 2021-12-25 19:05 | NUR ---
RECEIVED REPORT FROM LAURYN MORNING SHIFT. PT RESTING COMFORTABLY IN BED, DENIES ANY PAIN/DISCOMFORT. DAUGHTER AT BEDSIDE.
--- NOTE | 2021-12-25 20:24 | NUR ---
ASSISTED PT TO AMBULATE TO RESTROOM, STEADY GAIT.
--- NOTE | 2021-12-25 20:31 | NUR ---
GAVE REPORT TO WILL MAL.
--- NOTE | 2021-12-25 21:00 | NUR ---
[facility] care of Jacob Tsai, patient alert speak farsi but understand Yoruba, daughter at bedside. Patient appear to be weak, assisted to bed, refused body check, and refused to remove street clothes clain she's cold and in pain. Patient has no further episode of vomiting no diarrhea. [place] patient to the room and her call lights cont to monitor.
--- NOTE | 2021-12-25 21:00 | NUR ---
Pt. admitted to tele , under care of Dr. Quintanilla Dx: SBO Belongs List completed Pt admitted in stable condition. No SOB or labored breathing, afebrile. Denied any pain/discomfort upon discharge. VSS.
[2021-12-25 21:20] VITALS: BP 125/50
[2021-12-25 21:49] LABS: *BILIRUBIN,URIN NEGATIVE (NEGATIVE); *CLARITY,URINE CLOUDY (CLEAR); *COLOR,URINE YELLOW (YELLOW); *KETONES,URINE 3+ (NEGATIVE); *UROBILINOGEN,URINE 0.2 E.U./dl (NORMAL); LEUKOCYTE ESTERASE ,URINE TRACE (NEGATIVE); NITRITE, URINE NEGATIVE (NEGATIVE); PH,URINE 7.5 (5.0-8.0); UGLUCOSE NEGATIVE (NEGATIVE)
[2021-12-25 21:54] LABS: *BLOOD, URINE TRACE (NEGATIVE)
[2021-12-25] MEDS: IV NS 1000 ML 1,000 ML IV PRN (22:00)
[2021-12-25] MEDS: MORPHINE SULFATE 2 MG/1 ML DISP.SYRIN IV PRN (22:17)
[2021-12-25 22:25] LABS: BACTERIA,URINE NONE SEEN /HPF (NONE SEEN); RBC,URINE 0-3 /HPF (0-3); SQUAMOUS EPITHELIAL CELL,UR FEW /HPF (NONE SEEN); WBC,URINE 0-3 /HPF (0-3)
[2021-12-25 22:27] LABS: URINE AMORPHOUS PHOSPHATES MANY /HPF
[2021-12-26 04:03] VITALS: BP 129/45
[2021-12-26] MEDS: MORPHINE SULFATE 2 MG/1 ML DISP.SYRIN IV PRN ×2 (05:48→21:03)
--- NOTE | 2021-12-26 05:55 | NUR ---
Patient awake IV dislodge, place another one tolerate well, patient burping, abdomen slightly distended, complain of severe abdominal pain, given Morphine 1mg IV as ordered, assisted with toileting, cont to monitor.
--- NOTE | 2021-12-26 05:58 | NUR ---
Patient is unvaccinated for covid, flu, and pna according to daughter due to crohns disease. Patient stated she lost 60 lbs in one year. cont to monitor.
[2021-12-26 07:11] LABS: HEMATOCRIT 36.3 % (31.2-41.9); MEAN CORPUSCULAR HEMOGLOBIN 28.7 uug (24.7-32.8); MEAN CORPUSCULAR VOLUME 86.9 fL (75.5-95.3); PLATELET COUNT (AUTO) 242 K/uL (179-408)
[2021-12-26 07:29] LABS: CREATININE 0.6 mg/dL (0.6-1.3); MAGNESIUM 1.8 mg/dL (1.8-2.4); POTASSIUM 3.7 mmol/L (3.5-5.1)
--- NOTE | 2021-12-26 08:00 | NUR ---
AWAKE ALERT AND FOLLOWS COMMAND WELL. SPEAKS TURKEY AND FARSI. NPO FOR SBO WITH CONTINUES IVF AT 75 MLS/HR
[2021-12-26] MEDS: IV NS 1000 ML 1,000 ML IV PRN (09:50)
[2021-12-26] MEDS: MAGNESIUM SULFATE/D5W 100 ML IV SCH ×3 (10:38→12:32)
[2021-12-26] MEDS: PANTOPRAZOLE SODIUM 40 MG VIAL IV SCH (10:39)
[2021-12-26 11:30] VITALS: BP 109/40
--- NOTE | 2021-12-26 12:00 | NUR ---
NO ACUTE CHANGE FROM MORNING ASSESSMENT. SEEN BY Wes BELLO FOR SURGICAL CONSULT SEE NOTES
--- NOTE | 2021-12-26 14:18 | NUR ---
CONTINUE NPO ORDERED. SEEN BY HOSPITALIST FOR FOLLOW-UP SEE NOTES
[2021-12-26 16:00] VITALS: BP 102/54
[2021-12-26] MEDS ORDERED: PIPERACILLIN SODIUM/TAZOBACTAM 3.375 G in IV DEXTROSE 5% 50 ML IV SCH (17:00)
[2021-12-26] MEDS: POTASSIUM CHLORIDE 20 MEQ in IV D5/ 0.9% NACL 1,000 ML IV PRN (17:37)
[2021-12-26] MEDS: PIPERACILLIN SODIUM/TAZOBACTAM 3.375 G in IV DEXTROSE 5% 100 ML IV SCH (17:37)
[2021-12-26 20:18] VITALS: BP 126/51
[2021-12-27] MEDS: PIPERACILLIN SODIUM/TAZOBACTAM 3.375 G in IV DEXTROSE 5% 100 ML IV SCH ×2 (00:40→09:16)
--- NOTE | 2021-12-27 03:26 | NUR ---
AAOx 3-4 Admitted for small bowel obstruction. IVF's infusing well via right arm heplock. Ambulates to the BR with supervision. Voiding well. No BM noted this shift. NPO maintained. Medicated with Morphine 1mg IV as needed for pain. Will monitor patient.
[2021-12-27 04:12] VITALS: BP 117/45
[2021-12-27] MEDS: PANTOPRAZOLE SODIUM 40 MG VIAL IV SCH (09:16)
--- NOTE | 2021-12-27 09:30 | NUR ---
LATE ENTRY: 12/25/21 7925 PHARMACY NOTE: Pt was medicated with Ativan 0.5 mg IVP x 2 doses (total of 1mg) per verbal order by . Waste was witnessed by Avis Vázquez RN. Pharmacy note: Medication was removed under a different patient's account([id number]) from [employer] by accident by myself.
[2021-12-27 10:26] LABS: HEMATOCRIT 30.9 % (31.2-41.9); MEAN CORPUSCULAR HEMOGLOBIN 28.7 uug (24.7-32.8); MEAN CORPUSCULAR VOLUME 87.8 fL (75.5-95.3); PLATELET COUNT (AUTO) 199 K/uL (179-408)
--- NOTE | 2021-12-27 11:00 | NUR ---
Pt is a/o x4, refusing labs, explained to pt that results are needed to monitor status. Pt agreed to small vial being drawn but does not want any more blood draws or IV medications. Pt stated she is hungry and wants to eat. Pt is on NPO status due to bowel obstruction. Comfort measures provided, call light within reach, Will continue to monitor.
[2021-12-27] MEDS: POTASSIUM CHLORIDE 20 MEQ in IV D5/ 0.9% NACL 1,000 ML IV PRN (11:05)
[2021-12-27 11:08] LABS: IRON, SERUM 17 ug/dL (50-175)
[2021-12-27 11:33] LABS: ALANINE AMINOTRANSFERASE 26 U/L (14-59); ALKALINE PHOSPHATASE 57 U/L (50-136); ASPARTATE AMINOTRANSFERASE 28 U/L (15-37); BILIRUBIN,TOTAL 0.4 mg/dL (0.2-1.0); CARBON DIOXIDE 28 mmol/L (21-32); CHLORIDE 109 mmol/L (98-107); CHOLESTEROL 124 mg/dL (<200); CREATININE 0.6 mg/dL (0.6-1.3); GLUCOSE 93 mg/dL (74-106); HDL CHOLESTEROL 50 mg/dL (40-60); POTASSIUM 4.3 mmol/L (3.5-5.1); TOTAL PROTEIN, SERUM 4.9 g/dL (6.4-8.2); TRIGLYCERIDES 60 MG/DL (30-150); UREA NITROGEN, BLOOD 9 mg/dL (7-18)
[2021-12-27 11:44] VITALS: BP 113/42
--- NOTE | 2021-12-27 11:50 | NUR ---
Pt is placed on clear liquid diet per MD order. Will follow up with Dr. Pearl for plan of care
--- NOTE | 2021-12-27 12:17 | NUR ---
Dr Pearl assessed pt. Pt reported passing gas several times. Per MD no further work up needed at this time, will inform dining room supervisor. Pt placed on clear liquid diet. May advance as tolerated by pt. Will continue to monitor.
[2021-12-27 12:26] LABS: THYROID STIMULATING HORMONE 0.467 mIU/mL (0.358-3.740)
[2021-12-27] MEDS ORDERED: NEUTRA PHOS PACKET PO ONE (16:30)
[2021-12-27 16:47] VITALS: BP 118/42
--- NOTE | 2021-12-27 17:00 | NUR ---
pt left via private car, discharged to home. Pt tolerated diet well. IV removed, ID band removed. instructions provided to pt and family. all personal belongings at hand. no signed of acute distress. Pt is a/o x 4, ambulatory.
[2021-12-27] MEDS ORDERED: FERR324T17 PO (17:25)
== END 2021-12-27 16:55 | disposition home health service (06) | DRG 388 ==
LOC: ER 15:25 → TRANSITION 19:56 → TELE3 20:33 → MEDSURG3 21:30
PROVIDERS: ADMIT Internal Medicine; ATTEND Internal Medicine
DX: K56.609 Unspecified intestinal obstruction, unspecified as to partial versus complete obstruction (principal); E43 Unspecified severe protein-calorie malnutrition; K50.90 Crohn's disease, unspecified, without complications; A04.9 Bacterial intestinal infection, unspecified; Z90.49 Acquired absence of other specified parts of digestive tract; I70.0 Atherosclerosis of aorta; K57.90 Diverticulosis of intestine, part unspecified, without perforation or abscess without bleeding; N63.10 Unspecified lump in the right breast, unspecified quadrant; Z20.822 Contact with and (suspected) exposure to COVID-19; Z68.21 Body mass index [BMI] 21.0-21.9, adult; G47.00 Insomnia, unspecified; Z88.5 Allergy status to narcotic agent
CPT/HCPCS: 36415; 71045; 83550; 83605; 83690; 83735; 84100; 84443; 84484; 85025; 87086; 93005; A4663; C9113; G0378; J2270; J2405; J2543; J3475; J3480; J7040; J7042

== ENCOUNTER 2022-03-27 20:06 | Emergency (ER) | payer MEDICARE, OTHER ==
[~2022-03-27] VITALS: Ht 157.5 cm; Wt 40.8 kg
[~2022-03-27 20:06] MED LIST changes: +FERR324T17 PO
[2022-03-27] MEDS ORDERED: IV NORMAL SALINE 1000 ML BAG IV ONE (20:30)
[2022-03-27 20:54] LABS: HEMATOCRIT 35.1 % (31.2-41.9); MEAN CORPUSCULAR HEMOGLOBIN 29.8 uug (24.7-32.8); MEAN CORPUSCULAR VOLUME 92.1 fL (75.5-95.3); PLATELET COUNT (AUTO) 112 K/uL (179-408)
[2022-03-27 21:23] LABS: *BILIRUBIN,URIN NEGATIVE (NEGATIVE); *BLOOD, URINE 3+ (NEGATIVE); *CLARITY,URINE CLOUDY (CLEAR); *COLOR,URINE AMBER (YELLOW); *KETONES,URINE NEGATIVE (NEGATIVE); *UROBILINOGEN,URINE 0.2 E.U./dl (NORMAL); LEUKOCYTE ESTERASE ,URINE 1+ (NEGATIVE); NITRITE, URINE POSITIVE (NEGATIVE); UGLUCOSE NEGATIVE (NEGATIVE)
[2022-03-27 21:30] LABS: ALANINE AMINOTRANSFERASE < 6 U/L (14-59); ALKALINE PHOSPHATASE 128 U/L (50-136); ASPARTATE AMINOTRANSFERASE 74 U/L (15-37); BILIRUBIN,DIRECT 0.3 mg/dL (0.0-0.2); BILIRUBIN,TOTAL 1.1 mg/dL (0.2-1.0); CARBON DIOXIDE 30 mmol/L (21-32); CHLORIDE 101 mmol/L (98-107); CREATININE 0.8 mg/dL (0.6-1.3); GLUCOSE 83 mg/dL (74-106); POTASSIUM 4.1 mmol/L (3.5-5.1); TOTAL PROTEIN, SERUM 6.8 g/dL (6.4-8.2); UREA NITROGEN, BLOOD 14 mg/dL (7-18)
[2022-03-27 21:36] LABS: BACTERIA,URINE MANY /HPF (NONE SEEN); RBC,URINE 20-50 /HPF (0-3); SQUAMOUS EPITHELIAL CELL,UR MODERATE /HPF (NONE SEEN); WBC,URINE 50-80 /HPF (0-3)
[2022-03-27] MEDS ORDERED: SWABABLE VALVE TRANSFER SET EA MC ONE (21:43)
[2022-03-27] MEDS ORDERED: IV NORMAL SALINE 250 ML IV ONE (21:43)
[2022-03-27] MEDS ORDERED: IOHEXOL 350 100 ML INFUS..BTL ONE (21:44)
[2022-03-27] MEDS ORDERED: CEFTRIAXONE 1 G in IV DEXTROSE 5% 50 ML IV ONE (21:45)
[2022-03-27] MEDS ORDERED: AZITHROMYCIN IV 500 MG in IV DEXTROSE 5% 250 ML IV ONE (21:45)
--- NOTE | 2022-03-27 21:45 | NUR ---
pt was moved from the hallway to room 4b.
--- NOTE | 2022-03-27 21:53 | NUR ---
Patient left for CT.
--- NOTE | 2022-03-27 22:12 | NUR ---
pt returned from cat scan.
--- NOTE | 2022-03-27 22:52 | NUR ---
pt family refused abx, Dr. Farooq was informed he is speaking with the pt and the family.
--- NOTE | 2022-03-27 23:02 | NUR ---
call to [facility] for admission.
[2022-03-27] MEDS ORDERED: DICY10CA13 PO (23:16)
[2022-03-27] MEDS ORDERED: CEFTRIAXONE /D5W 50ML IVPB **ER PYXIS IV ONE (23:18)
[2022-03-27] MEDS ORDERED: AZITHROMYCIN 500MG/ D5W 250ML IVPB **ER PYXIS ONLY IV ONE (23:19)
--- NOTE | 2022-03-27 23:35 | NUR ---
pt resting with eyes closed, resp even unlabored pt awakes to verbal denies pain.
[2022-03-28] MEDS ORDERED: KETOROLAC TROMETHAMINE 15 MG INJ ONE (00:39)
--- NOTE | 2022-03-28 00:40 | NUR ---
Niki Sen called back and is speaking with Dr. Farooq.
[2022-03-28] MEDS ORDERED: ONDANSETRON 4 MG/2 ML VIAL IV PRN (00:45)
[2022-03-28] MEDS ORDERED: REMEDY ESSENTIAL ZINC PASTE 113 GM TP PRN (00:45)
[2022-03-28] MEDS ORDERED: KETOROLAC TROMETHAMINE 15 MG INJ IVP ONE (00:45)
[2022-03-28] MEDS ORDERED: ACETAMINOPHEN 325 MG TABLET PO PRN (00:45)
[2022-03-28] MEDS ORDERED: MAGNESIUM HYDROXIDE 30 ML LIQUID UDC PO PRN (00:45)
[2022-03-28] MEDS ORDERED: IV NS 1000 ML 1,000 ML IV PRN (00:45)
[2022-03-28] MEDS ORDERED: AZITHROMYCIN IV 500 MG in IV DEXTROSE 5% 250 ML IV SCH ×2 (00:45→21:00)
[2022-03-28] MEDS ORDERED: CEFTRIAXONE 1 G in IV DEXTROSE 5% 50 ML IV SCH ×3 (00:45→22:00)
--- NOTE | 2022-03-28 01:12 | NUR ---
orders were noted from [facility] for rocephin and zithromax these were previously given. it was now charted that these were not given.
--- NOTE | 2022-03-28 04:18 | NUR ---
pt is restless says she wants to go home today and she insists on walking around in the room.
--- NOTE | 2022-03-28 06:15 | NUR ---
pt has been in bed but remains restless she states at 8am she will go home.
--- NOTE | 2022-03-28 07:56 | NUR ---
No beds available for pt., per 3rd floor.
--- NOTE | 2022-03-28 08:30 | NUR ---
Pt was found wondering out of her room several times and had to be re-directed to bed and rehooked to the monitor. States she wants to leave and her son is coming to pick her up.
--- NOTE | 2022-03-28 09:45 | NUR ---
Removed IV intact, site okay, bandaged. Pt's son came to picking machine operator helper pt, signed her out AMA. Pt and son both aware of possible consequences.
--- NOTE | 2022-03-28 10:19 | NUR ---
Kelly hilario in ED - 03/28/22 at 1025 by [email or web address] Pt's son came to strip picker pt, signed her out AMA. Pt and son both aware of possible consequences.
[2022-03-28] MEDS ORDERED: DULO30CA2 PO (12:35)
== END 2022-03-28 09:55 | disposition left against medical advice (07) ==
LOC: ER 20:09 → UNDOADMIN 23:20 → TRANSITION 23:20 → UNDOADMIN 03-28 00:47 → ER 03-28 09:55 → UNDODISIN 03-28 10:30
DX: N12 Tubulo-interstitial nephritis, not specified as acute or chronic (principal); J18.9 Pneumonia, unspecified organism; K50.90 Crohn's disease, unspecified, without complications; Z20.822 Contact with and (suspected) exposure to COVID-19; Z90.49 Acquired absence of other specified parts of digestive tract; Z88.5 Allergy status to narcotic agent; D69.6 Thrombocytopenia, unspecified; R94.31 Abnormal electrocardiogram [ECG] [EKG]
CPT/HCPCS: 99285; 74177; 96365; 71045; 96361; 87426; 80076; 80048; 81001; 85025; 87400; 87040 ×2; 87086; 84484; 36415; 93005; 96368; 83605; 96375; 87186; 87077; J0456; J0696; Q9967; J7040; J1885; A4663; G0378

== ENCOUNTER 2022-05-07 13:55 | Emergency (ER) | payer MEDICARE, OTHER ==
[~2022-05-07] VITALS: Ht 152.4 cm; Wt 40.8 kg
[~2022-05-07 13:55] MED LIST changes: +DICY10CA13 PO; -DOCU-141 PO; +DULO30CA2 PO; -FERR324T17 PO
--- NOTE | 2022-05-07 13:58 | NUR ---
Patient is AOx4, refusing to change to hospital gown@this time. Patient and her adult son can not recall exact names and dosages of home medicines. Patient's son was told to bring the list or bottles to ER department.
[2022-05-07] MEDS ORDERED: IV NORMAL SALINE 500 ML BAG IV ONE (14:15)
[2022-05-07] MEDS ORDERED: ACETAMINOPHEN 325 MG TABLET PO ONE (14:15)
[2022-05-07 14:37] LABS: HEMATOCRIT 34.7 % (31.2-41.9); MEAN CORPUSCULAR HEMOGLOBIN 31.5 uug (24.7-32.8); MEAN CORPUSCULAR VOLUME 95.9 fL (75.5-95.3); PLATELET COUNT (AUTO) 189 K/uL (179-408)
[2022-05-07 14:44] LABS: CARBON DIOXIDE 26 mmol/L (21-32); CHLORIDE 99 mmol/L (98-107); CREATININE 0.6 mg/dL (0.6-1.3); GLUCOSE 97 mg/dL (74-106); POTASSIUM 3.7 mmol/L (3.5-5.1); UREA NITROGEN, BLOOD 11 mg/dL (7-18)
[2022-05-07] MEDS ORDERED: ACETAMINOPHEN 325 MG TABLET ONE (14:51)
[2022-05-07 14:55] LABS: *BILIRUBIN,URIN NEGATIVE (NEGATIVE); *BLOOD, URINE 3+ (NEGATIVE); *CLARITY,URINE CLEAR (CLEAR); *COLOR,URINE YELLOW (YELLOW); *KETONES,URINE TRACE (NEGATIVE); *UROBILINOGEN,URINE 0.2 E.U./dl (NORMAL); LEUKOCYTE ESTERASE ,URINE NEGATIVE (NEGATIVE); NITRITE, URINE NEGATIVE (NEGATIVE); UGLUCOSE NEGATIVE (NEGATIVE)
[2022-05-07 15:03] LABS: ALANINE AMINOTRANSFERASE 27 U/L (14-59); ALKALINE PHOSPHATASE 61 U/L (50-136); ASPARTATE AMINOTRANSFERASE 24 U/L (15-37); BILIRUBIN,DIRECT 0.1 mg/dL (0.0-0.2); BILIRUBIN,TOTAL 0.4 mg/dL (0.2-1.0); LIPASE 117 U/L (73-393); TOTAL PROTEIN, SERUM 6.3 g/dL (6.4-8.2)
[2022-05-07 15:10] LABS: BACTERIA,URINE MODERATE /HPF (NONE SEEN); RBC,URINE 80-100 /HPF (0-3); WBC,URINE 0-3 /HPF (0-3)
[2022-05-07 15:11] LABS: SQUAMOUS EPITHELIAL CELL,UR MODERATE /HPF (NONE SEEN)
[2022-05-07] MEDS ORDERED: CEFTRIAXONE 1 G in IV DEXTROSE 5% 50 ML IV ONE (16:00)
[2022-05-07] MEDS ORDERED: CEFTRIAXONE /D5W 50ML IVPB **ER PYXIS IV ONE (18:15)
[2022-05-07] MEDS ORDERED: CEFP200T14 PO (18:16)
--- NOTE | 2022-05-07 19:15 | NUR ---
Patient discharged by Bentley RESENDEZentry level account representative
[2022-05-07 19:39] VITALS: BP 143/67
== END 2022-05-07 19:15 | disposition home or self-care (01) ==
LOC: ER 13:55
DX: S32.10XA Unspecified fracture of sacrum, initial encounter for closed fracture (principal); W19.XXXA Unspecified fall, initial encounter; Y92.89 Other specified places as the place of occurrence of the external cause; K50.90 Crohn's disease, unspecified, without complications; Z90.49 Acquired absence of other specified parts of digestive tract; R26.2 Difficulty in walking, not elsewhere classified; N39.0 Urinary tract infection, site not specified; R31.9 Hematuria, unspecified; Z20.822 Contact with and (suspected) exposure to COVID-19
CPT/HCPCS: 99285; 74176; 96365; 96361; 87426; 80076; 80048; 81001; 83690; 85025; 87086; 84484; 36415; 93005; J0696; J7040; A4663

== ENCOUNTER 2022-06-17 17:56 | Emergency (ER) | payer MEDICARE, OTHER ==
[~2022-06-17] VITALS: Ht 142.2 cm; Wt 41.7 kg
[~2022-06-17 17:56] MED LIST changes: +CEFP200T14 PO
[2022-06-17] MEDS ORDERED: ONDANSETRON 4 MG/2 ML VIAL IV ONE (18:45)
[2022-06-17] MEDS ORDERED: IV NORMAL SALINE 1000 ML BAG IV ONE (18:45)
[2022-06-17] MEDS ORDERED: HYDROMORPHONE 1 MG/1 ML DISP.SYRIN IV ONE (18:45)
[2022-06-17 19:32] LABS: HEMATOCRIT 39.7 % (31.2-41.9); MEAN CORPUSCULAR HEMOGLOBIN 31.1 uug (24.7-32.8); MEAN CORPUSCULAR VOLUME 93.8 fL (75.5-95.3); PLATELET COUNT (AUTO) 219 K/uL (179-408)
--- NOTE | 2022-06-17 19:38 | NUR ---
Pt able to ambulate restroom. Daughter is at bedside
[2022-06-17 19:39] LABS: CREATININE 0.7 mg/dL (0.6-1.3); POTASSIUM 4.7 mmol/L (3.5-5.1)
[2022-06-17 19:45] LABS: BILIRUBIN,DIRECT 0.1 mg/dL (0.0-0.2); BILIRUBIN,TOTAL 0.4 mg/dL (0.2-1.0); TOTAL PROTEIN, SERUM 7.5 g/dL (6.4-8.2)
[2022-06-17] MEDS ORDERED: ONDANSETRON 4 MG/2 ML VIAL ONE (19:57)
[2022-06-17] MEDS ORDERED: HYDROMORPHONE 1 MG/1 ML DISP.SYRIN ONE (19:57)
[2022-06-17 20:06] LABS: MAGNESIUM 2.2 mg/dL (1.8-2.4)
[2022-06-17] MEDS ORDERED: IOHEXOL 300MG/ML 100 ML INFUS..BTL ONE (20:10)
[2022-06-17] MEDS ORDERED: IV NORMAL SALINE 250 ML IV ONE (20:10)
[2022-06-17] MEDS ORDERED: SWABABLE VALVE TRANSFER SET EA MC ONE (20:10)
--- NOTE | 2022-06-17 20:26 | NUR ---
Pt taken down to CT
[2022-06-17] MEDS ORDERED: CYANOCOBALAMIN 1000 MCG/ML VIAL IM ONE (21:15)
[2022-06-17] MEDS ORDERED: ONDA4TAB5 PO (21:22)
[2022-06-17] MEDS ORDERED: CYANOCOBALAMIN 1000 MCG/ML VIAL ONE (21:32)
--- NOTE | 2022-06-17 22:33 | NUR ---
Patient discharged to home in stable condition accompanied by son. Written and verbal after care instructions given. Patient verbalizes understanding of instructions. Stressed follow up or return to ER for worsening s/s.
[2022-06-17 22:37] VITALS: BP 157/88
== END 2022-06-17 22:37 | disposition home or self-care (01) ==
LOC: ER 17:58
DX: R10.84 Generalized abdominal pain (principal); K50.90 Crohn's disease, unspecified, without complications; Z90.49 Acquired absence of other specified parts of digestive tract; M81.0 Age-related osteoporosis without current pathological fracture; Z88.5 Allergy status to narcotic agent
CPT/HCPCS: 99285; 96374; 96361; 96375; 80076; 80048; 82607; 83735; 85025; 36415; 93005; 96372; 83605; J3420; J2405; J1170; J7040; A4663; Q9967

== ENCOUNTER 2022-07-10 09:39 | Emergency (ER) | payer MEDICARE, OTHER ==
[~2022-07-10] VITALS: Ht 152.4 cm; Wt 40.8 kg
[~2022-07-10 09:39] MED LIST changes: +ONDA4TAB5 PO
--- NOTE | 2022-07-10 09:57 | NUR ---
Pt's daughter, Cris awairing call for info,at [phone], .
[2022-07-10 10:11] LABS: HEMATOCRIT 35.7 % (31.2-41.9); MEAN CORPUSCULAR HEMOGLOBIN 30.9 uug (24.7-32.8); MEAN CORPUSCULAR VOLUME 94.4 fL (75.5-95.3); PLATELET COUNT (AUTO) 159 K/uL (179-408)
[2022-07-10 10:30] LABS: CREATININE 0.6 mg/dL (0.6-1.3); POTASSIUM 3.9 mmol/L (3.5-5.1)
[2022-07-10 10:36] LABS: BILIRUBIN,DIRECT 0.1 mg/dL (0.0-0.2); BILIRUBIN,TOTAL 0.3 mg/dL (0.2-1.0); TOTAL PROTEIN, SERUM 6.9 g/dL (6.4-8.2)
[2022-07-10 10:42] LABS: *BILIRUBIN,URIN NEGATIVE (NEGATIVE); *BLOOD, URINE 3+ (NEGATIVE); *CLARITY,URINE CLEAR (CLEAR); *COLOR,URINE YELLOW (YELLOW); *KETONES,URINE NEGATIVE (NEGATIVE); *UROBILINOGEN,URINE 0.2 E.U./dl (NORMAL); LEUKOCYTE ESTERASE ,URINE NEGATIVE (NEGATIVE); NITRITE, URINE NEGATIVE (NEGATIVE); UGLUCOSE NEGATIVE (NEGATIVE)
[2022-07-10 11:33] VITALS: BP 140/89
--- NOTE | 2022-07-10 11:33 | NUR ---
Patient discharged to home in stable condition. Written and verbal after care instructions given. Patient verbalizes understanding of instructions. Stressed follow up or return to ER for worsening s/s.
[2022-07-10 11:44] LABS: BACTERIA,URINE NONE SEEN /HPF (NONE SEEN); WBC,URINE 0-3 /HPF (0-3)
[2022-07-10 11:45] LABS: SQUAMOUS EPITHELIAL CELL,UR FEW /HPF (NONE SEEN)
== END 2022-07-10 11:34 | disposition home or self-care (01) ==
LOC: ER 09:39
DX: R10.9 Unspecified abdominal pain (principal); K50.90 Crohn's disease, unspecified, without complications; Z90.49 Acquired absence of other specified parts of digestive tract; F41.9 Anxiety disorder, unspecified; Z79.899 Other long term (current) drug therapy
CPT/HCPCS: 36415; 83690; 85025; A4663

== ENCOUNTER 2022-07-24 08:16 | Emergency (ER) | payer MEDICARE, OTHER ==
[~2022-07-24] VITALS: Ht 152.4 cm; Wt 49.9 kg
--- NOTE | 2022-07-24 08:28 | NUR ---
PT IS IN ROOM #1A. DR RIVERA EVALUATED THE PT.
[2022-07-24] MEDS ORDERED: LORA-259 (08:32)
[2022-07-24] MEDS ORDERED: DICY10CA21 MT (08:32)
--- NOTE | 2022-07-24 08:50 | NUR ---
PT WAS D/C'd TO HOME. D/C INSTRUCTIONS GIVEN TO THE PT BY DR RIVERA.
[2022-07-24 08:51] VITALS: BP 144/78
== END 2022-07-24 08:52 | disposition home or self-care (01) ==
LOC: ER 08:16
DX: I10 Essential (primary) hypertension (principal); F41.9 Anxiety disorder, unspecified; Z90.49 Acquired absence of other specified parts of digestive tract; K50.90 Crohn's disease, unspecified, without complications
CPT/HCPCS: A4663

== ENCOUNTER 2022-10-22 16:38 | Inpatient (IN) | payer MEDICARE, OTHER ==
[~2022-10-22] VITALS: Ht 152.4 cm; Wt 49.9 kg
[~2022-10-22 16:38] MED LIST changes: +DICY10CA21 MT; +LORA-259
[2022-10-22] MEDS ORDERED: MORPHINE SULFATE 4 MG/1 ML DISP.SYRIN IV ONE (18:45)
[2022-10-22] MEDS ORDERED: MORPHINE SULFATE 4 MG/1 ML DISP.SYRIN ONE (18:45)
[2022-10-22 19:02] LABS: HEMATOCRIT 37.7 % (31.2-41.9); MEAN CORPUSCULAR VOLUME 92.6 fL (75.5-95.3); PLATELET COUNT (AUTO) 175 K/uL (179-408)
[2022-10-22 19:11] LABS: CARBON DIOXIDE 30 mmol/L (21-32); CHLORIDE 99 mmol/L (98-107); CREATININE 0.6 mg/dL (0.6-1.3); GLUCOSE 95 mg/dL (74-106); POTASSIUM 3.9 mmol/L (3.5-5.1); UREA NITROGEN, BLOOD 9 mg/dL (7-18)
[2022-10-22] MEDS ORDERED: SWABABLE VALVE TRANSFER SET EA MC ONE (19:15)
[2022-10-22] MEDS ORDERED: IOHEXOL 300MG/ML 100 ML INFUS..BTL ONE (19:15)
[2022-10-22 19:17] LABS: ALANINE AMINOTRANSFERASE 36 U/L (14-59); ALKALINE PHOSPHATASE 72 U/L (50-136); ASPARTATE AMINOTRANSFERASE 34 U/L (15-37); BILIRUBIN,TOTAL 0.4 mg/dL (0.2-1.0); TOTAL PROTEIN, SERUM 7.4 g/dL (6.4-8.2)
[2022-10-22] MEDS ORDERED: IV NORMAL SALINE 250 ML IV ONE (19:17)
[2022-10-22 20:01] LABS: *BILIRUBIN,URIN NEGATIVE (NEGATIVE); *BLOOD, URINE 3+ (NEGATIVE); *COLOR,URINE YELLOW (YELLOW); *KETONES,URINE NEGATIVE (NEGATIVE); *UROBILINOGEN,URINE 0.2 E.U./dl (NORMAL); LEUKOCYTE ESTERASE ,URINE NEGATIVE (NEGATIVE); NITRITE, URINE NEGATIVE (NEGATIVE); PH,URINE 7.5 (5.0-8.0); UGLUCOSE NEGATIVE (NEGATIVE)
[2022-10-22 20:08] LABS: *CLARITY,URINE HAZY (CLEAR)
[2022-10-22] MEDS ORDERED: FAMOTIDINE. 20 MG/2 ML VIAL IV ONE ×2 (20:15→20:22)
[2022-10-22] MEDS ORDERED: KETOROLAC TROMETHAMINE 15 MG INJ IVP ONE (20:15)
[2022-10-22] MEDS ORDERED: KETOROLAC TROMETHAMINE 15 MG INJ ONE (20:22)
[2022-10-22 20:26] LABS: BACTERIA,URINE FEW /HPF (NONE SEEN); RBC,URINE TNTC /HPF (0-3); WBC,URINE 0-3 /HPF (0-3)
[2022-10-22 20:56] LABS: SQUAMOUS EPITHELIAL CELL,UR FEW /HPF (NONE SEEN)
[2022-10-22] MEDS ORDERED: OLANZAPINE 10 MG VIAL IM ONE ×2 (21:00→21:04)
[2022-10-22] MEDS ORDERED: KETAMINE HCL 500 MG/10 ML INJ IV ONE (21:30)
[2022-10-22] MEDS ORDERED: KETAMINE HCL 500 MG/10 ML INJ ONE (21:40)
[2022-10-22] MEDS ORDERED: LORAZEPAM 2 MG/1 ML VIAL ONE (21:45)
[2022-10-22] MEDS ORDERED: LORAZEPAM 2 MG/1 ML VIAL IV ONE (22:00)
[2022-10-22] MEDS ORDERED: ONDANSETRON 4 MG/2 ML VIAL IV ONE (22:30)
[2022-10-22] MEDS ORDERED: LORAZEPAM 2 MG/1 ML VIAL IV PRN (22:30)
[2022-10-22] MEDS ORDERED: MORPHINE SULFATE 2 MG/1 ML DISP.SYRIN IV PRN (23:00)
[2022-10-22] MEDS ORDERED: ONDANSETRON 4 MG/2 ML VIAL IV PRN (23:00)
[2022-10-22] MEDS ORDERED: ACETAMINOPHEN 650 MG/20.3 ML LIQUID UDC PO PRN ×2 (23:00)
[2022-10-23] VITALS: BP 102/57
[2022-10-23] MEDS: LORAZEPAM 2 MG/1 ML VIAL IV PRN ×2 (01:04→20:31)
[2022-10-23 04:00] VITALS: BP 151/62
[2022-10-23 07:00] LABS: HEMATOCRIT 35.8 % (31.2-41.9); MEAN CORPUSCULAR HEMOGLOBIN 30.2 uug (24.7-32.8); MEAN CORPUSCULAR VOLUME 93.3 fL (75.5-95.3); PLATELET COUNT (AUTO) 169 K/uL (179-408)
[2022-10-23] MEDS ORDERED: PANTOPRAZOLE SODIUM 40 MG TABLET.DR PO SCH (07:00)
[2022-10-23 07:25] LABS: THYROID STIMULATING HORMONE 1.163 mIU/mL (0.358-3.740)
[2022-10-23 07:26] LABS: BILIRUBIN,TOTAL 0.5 mg/dL (0.2-1.0); CREATININE 0.6 mg/dL (0.6-1.3); PHOSPHOROUS 4.1 mg/dL (2.5-4.9); POTASSIUM 3.6 mmol/L (3.5-5.1); TOTAL PROTEIN, SERUM 6.2 g/dL (6.4-8.2)
[2022-10-23] MEDS ORDERED: ENOXAPARIN SODIUM 40 MG/0.4 ML DISP.SYRIN SQ SCH (09:00)
[2022-10-23] MEDS ORDERED: LORAZEPAM 1 MG TABLET PO PRN (10:30)
[2022-10-23 11:55] VITALS: BP 147/48
[2022-10-23] MEDS ORDERED: ONDANSETRON HCL 4 MG TABLET PO PRN (12:00)
[2022-10-23] MEDS ORDERED: LOSA50TA39 PO (12:14)
[2022-10-23] MEDS ORDERED: LOSARTAN POTASSIUM 50 MG TABLET PO SCH (13:00)
[2022-10-23 16:15] VITALS: BP 152/71
[2022-10-23] MEDS ORDERED: DICYCLOMINE HCL 10 MG CAPSULE PO SCH (16:30)
[2022-10-23] MEDS ORDERED: HALOPERIDOL LACTATE 5 MG/1 ML VIAL IM ONE (21:15)
[2022-10-24] MEDS ORDERED: DULOXETINE 30 MG CAPSULE.DR PO SCH (09:00)
== END 2022-10-23 22:35 | disposition left against medical advice (07) | DRG 387 ==
LOC: ER 16:40 → MEDSURG3 22:19 → TELE3 22:32
PROVIDERS: ADMIT Student in an Organized Health Care Education/Training Program; ATTEND Student in an Organized Health Care Education/Training Program
DX: K50.90 Crohn's disease, unspecified, without complications (principal); D69.6 Thrombocytopenia, unspecified; R31.9 Hematuria, unspecified; Z90.49 Acquired absence of other specified parts of digestive tract; F41.9 Anxiety disorder, unspecified; I10 Essential (primary) hypertension; M41.9 Scoliosis, unspecified; K29.70 Gastritis, unspecified, without bleeding; Z20.822 Contact with and (suspected) exposure to COVID-19; Z79.899 Other long term (current) drug therapy
CPT/HCPCS: 36415; 83605; 83690; 83735; 84100; 84443; 84484; 85025; 85610; 93005; G0378; J1650; J1885; J2060; J2270; J2358; J3490; Q9967

== ENCOUNTER 2022-10-28 15:19 | Emergency (ER) | payer MEDICARE, OTHER ==
[~2022-10-28] VITALS: Ht 152.4 cm; Wt 49.9 kg
[~2022-10-28 15:19] MED LIST changes: -CEFP200T14 PO; -DICY10CA21 MT; -DULO30CA2 PO; -LORA-259; +LOSA50TA39 PO; -ONDA4TAB5 PO
[2022-10-28] MEDS ORDERED: MORPHINE SULFATE 4 MG/1 ML DISP.SYRIN ONE ×2 (16:11→17:12)
[2022-10-28] MEDS ORDERED: ONDANSETRON ODT 4 MG TAB.RAPDIS ONE (16:11)
[2022-10-28] MEDS ORDERED: MORPHINE SULFATE 4 MG/1 ML DISP.SYRIN IM ONE ×2 (16:15→17:30)
[2022-10-28] MEDS ORDERED: ONDANSETRON ODT 4 MG TAB.RAPDIS SL ONE (16:15)
[2022-10-28] MEDS ORDERED: HYDROCODONE/APAP 5-325MG TABLET PO ONE (16:30)
[2022-10-28] MEDS ORDERED: TRAM50TA2 PO (17:33)
[2022-10-28 17:41] VITALS: BP 142/83
== END 2022-10-28 17:39 | disposition home or self-care (01) ==
LOC: ER 15:21
DX: M54.50 Low back pain, unspecified (principal); I10 Essential (primary) hypertension; M51.36 Other intervertebral disc degeneration, lumbar region; M48.061 Spinal stenosis, lumbar region without neurogenic claudication; Z90.49 Acquired absence of other specified parts of digestive tract; K50.90 Crohn's disease, unspecified, without complications; Z88.6 Allergy status to analgesic agent
CPT/HCPCS: 99285; 72131; 96372; J2270 ×2; A4663; Q0162

== ENCOUNTER 2022-11-30 16:12 | Emergency (ER) | payer MEDICARE, OTHER ==
[~2022-11-30] VITALS: Ht 154.9 cm; Wt 49.9 kg
[~2022-11-30 16:12] MED LIST changes: +TRAM50TA2 PO
[2022-11-30] MEDS ORDERED: LOSARTAN POTASSIUM 50 MG TABLET PO SCH (17:00)
[2022-11-30] MEDS ORDERED: KETOROLAC TROMETHAMINE 15 MG INJ IM ONE (17:00)
[2022-11-30] MEDS ORDERED: KETOROLAC TROMETHAMINE 15 MG INJ ONE (17:05)
[2022-11-30] MEDS ORDERED: LOSA100T31 PO (17:17)
[2022-11-30 18:50] VITALS: BP 153/85
== END 2022-11-30 19:45 | disposition home or self-care (01) ==
LOC: ER 16:12
DX: I10 Essential (primary) hypertension (principal); R10.9 Unspecified abdominal pain; M54.50 Low back pain, unspecified; Z90.49 Acquired absence of other specified parts of digestive tract; Z88.5 Allergy status to narcotic agent; Z79.899 Other long term (current) drug therapy
CPT/HCPCS: 99283; 96372; J1885; A4663

== ENCOUNTER 2022-12-29 18:48 | Emergency (ER) | payer MEDICARE, OTHER ==
[~2022-12-29 18:48] MED LIST changes: +LOSA100T31 PO
--- NOTE | 2022-12-29 20:45 | NUR ---
Patient was just called to be triaged at this time due to only 2 nurses schedule in the ER (Short staff) and 6 patient in the ER room already. Triaged nurse taking 2 patient and other schedule nurse taking of 4 patient. Patient was not present in the waiting room at this time.
--- NOTE | 2022-12-29 21:10 | NUR ---
Patient was called to be triaged, but was not present in the waiting room or outside of ER.
--- NOTE | 2022-12-29 21:45 | NUR ---
Patient was called to be triaged but was not present in the waiting room or outside of ER. PATIENT WAS NOT TRIAGED OR SEEN BY ERMD.
== END 2022-12-29 21:45 | disposition left against medical advice (07) ==
LOC: ER 18:48
DX: Z53.21 Procedure and treatment not carried out due to patient leaving prior to being seen by health care provider (principal)

== ENCOUNTER 2023-02-17 21:01 | Emergency (ER) | payer MEDICARE, OTHER ==
[~2023-02-17] VITALS: Ht 162.6 cm; Wt 45.4 kg
[~2023-02-17 21:01] MED LIST changes: +BISA-79 PO; +CEPH500T PO; +FAMO-132 PO; +ONDA4TAB5 PO
--- NOTE | 2023-02-17 23:30 | NUR ---
Pt is noted responsive and alert as she came in C/O Abdominal pain and was S/P Seen here last Week. Pt care continue as awaits MD Orders.
[2023-02-17 23:43] VITALS: O2SAT 98
--- NOTE | 2023-02-18 00:35 | NUR ---
Pt is noted off the unit as she left AMA.
[2023-02-22] MEDS ORDERED: DICY10CA13 PO (16:24)
== END 2023-02-18 00:35 | disposition left against medical advice (07) ==
LOC: ER 21:34
DX: G89.29 Other chronic pain (principal); R10.9 Unspecified abdominal pain; K50.90 Crohn's disease, unspecified, without complications; Z90.49 Acquired absence of other specified parts of digestive tract; Z88.5 Allergy status to narcotic agent; Z79.899 Other long term (current) drug therapy
CPT/HCPCS: A4663

== ENCOUNTER 2023-04-05 12:39 | Emergency (ER) | payer MEDICARE, OTHER ==
[~2023-04-05] VITALS: Ht 152.4 cm; Wt 45.4 kg
[~2023-04-05 12:39] MED LIST changes: -BISA-79 PO; -CEPH500T PO; -LOSA100T31 PO; -TRAM50TA2 PO
[2023-04-05 13:56] LABS: *BILIRUBIN,URIN NEGATIVE (NEGATIVE); *BLOOD, URINE 3+ (NEGATIVE); *CLARITY,URINE CLEAR (CLEAR); *COLOR,URINE YELLOW (YELLOW); *KETONES,URINE NEGATIVE (NEGATIVE); *PROTEIN,URINE NEGATIVE (NEGATIVE); *UROBILINOGEN,URINE 0.2 E.U./dl (NORMAL); LEUKOCYTE ESTERASE ,URINE NEGATIVE (NEGATIVE); NITRITE, URINE NEGATIVE (NEGATIVE); UGLUCOSE NEGATIVE (NEGATIVE)
[2023-04-05 14:12] LABS: CALCIUM 8.6 mg/dL (8.5-10.1); CARBON DIOXIDE 32 mmol/L (21-32); CHLORIDE 97 mmol/L (98-107); CREATININE 0.7 mg/dL (0.6-1.3); GLUCOSE 109 mg/dL (74-106); POTASSIUM 3.7 mmol/L (3.5-5.1); SODIUM SERUM 133 mmol/L (136-145); UREA NITROGEN, BLOOD 12 mg/dL (7-18)
[2023-04-05 14:17] LABS: BASOPHILS % (AUTO) 0.6 % (0.0-2.0); DIFFERENTIAL COMMENT 0; EOSINOPHILS % (AUTO) 0.2 % (0.0-7.0); HEMATOCRIT 33.4 % (31.2-41.9); HEMOGLOBIN 10.7 g/dL (10.9-14.3); LYMPHOCYTES # (AUTO) 0.4 K/uL (0.8-4.8); LYMPHOCYTES % (AUTO) 7.4 % (20.5-51.5); MEAN CORPUSCULAR HEMOGLOBIN 29.8 uug (24.7-32.8); MEAN CORPUSCULAR HGB CONC 32 g/dL (32.3-35.6); MONOCYTES # (AUTO) 0.3 K/uL (0.1-1.30); MONOCYTES % (AUTO) 5.3 % (0.0-11.0); NEUTROPHILS # (AUTO) 4.4 K/uL (1.8-8.9); NEUTROPHILS % (AUTO) 86.5 % (38.5-71.5); PLATELET COUNT (AUTO) 155 K/uL (179-408); RED BLOOD CELL COUNT(AUTO) 3.59 MIL/uL (3.63-4.92); RED CELL DISTRIBUTION WIDTH 15.4 % (12.3-17.7); WHITE BLOOD COUNT (AUTO) 5.1 K/uL (3.8-11.8)
[2023-04-05 14:21] LABS: ALANINE AMINOTRANSFERASE 26 U/L (14-59); ALBUMIN 3.4 g/dL (3.4-5.0); ALKALINE PHOSPHATASE 85 U/L (50-136); ASPARTATE AMINOTRANSFERASE 25 U/L (15-37); BILIRUBIN,DIRECT 0.1 mg/dL (0.0-0.2); BILIRUBIN,TOTAL 0.2 mg/dL (0.2-1.0); LIPASE 210 U/L (73-393); TOTAL PROTEIN, SERUM 7.1 g/dL (6.4-8.2)
[2023-04-05] MEDS ORDERED: LORA0.5T48 PO (14:40)
[2023-04-05] MEDS ORDERED: LACT10SO58 PO (14:40)
[2023-04-05 15:09] LABS: BACTERIA,URINE FEW /HPF (NONE SEEN); RBC,URINE 80-100 /HPF (0-3); SQUAMOUS EPITHELIAL CELL,UR FEW /HPF (NONE SEEN); WBC,URINE 0-3 /HPF (0-3)
[2023-04-05 15:11] VITALS: BP 145/71; TEMP 98.2; O2SAT 100
== END 2023-04-05 15:11 | disposition home or self-care (01) ==
LOC: ER 12:42
DX: K59.00 Constipation, unspecified (principal); K50.90 Crohn's disease, unspecified, without complications; R07.89 Other chest pain; F41.9 Anxiety disorder, unspecified; I25.10 Atherosclerotic heart disease of native coronary artery without angina pectoris; Z88.5 Allergy status to narcotic agent; Z79.899 Other long term (current) drug therapy
CPT/HCPCS: 36415; 71045; 83690; 84484; 85025; 93005; A4663

== ENCOUNTER 2023-04-10 17:15 | Emergency (ER) | payer MEDICARE, OTHER ==
[~2023-04-10] VITALS: Ht 144.8 cm; Wt 36.3 kg
[~2023-04-10 17:15] MED LIST changes: +LACT10SO58 PO; +LORA0.5T48 PO
[2023-04-10 18:30] LABS: BASOPHILS % (AUTO) 0.4 % (0.0-2.0); EOSINOPHILS # (AUTO) 0.1 K/uL (0.0-0.7); EOSINOPHILS % (AUTO) 1.4 % (0.0-7.0); HEMATOCRIT 33.1 % (31.2-41.9); HEMOGLOBIN 10.6 g/dL (10.9-14.3); LYMPHOCYTES # (AUTO) 0.7 K/uL (0.8-4.8); LYMPHOCYTES % (AUTO) 12.5 % (20.5-51.5); MEAN CORPUSCULAR HGB CONC 32 g/dL (32.3-35.6); MONOCYTES # (AUTO) 0.4 K/uL (0.1-1.30); MONOCYTES % (AUTO) 7.7 % (0.0-11.0); NEUTROPHILS # (AUTO) 4.3 K/uL (1.8-8.9); PLATELET COUNT (AUTO) 154 K/uL (179-408); RED BLOOD CELL COUNT(AUTO) 3.52 MIL/uL (3.63-4.92); RED CELL DISTRIBUTION WIDTH 15.6 % (12.3-17.7); WHITE BLOOD COUNT (AUTO) 5.5 K/uL (3.8-11.8)
[2023-04-10] MEDS ORDERED: KETOROLAC TROMETHAMINE 30 MG INJ IM ONE (19:15)
[2023-04-10] MEDS ORDERED: KETOROLAC TROMETHAMINE 30 MG INJ ONE (19:18)
[2023-04-10 19:25] LABS: DIFFERENTIAL COMMENT 1
[2023-04-10 19:33] LABS: CALCIUM 9.6 mg/dL (8.5-10.1); CARBON DIOXIDE 30 mmol/L (21-32); CHLORIDE 103 mmol/L (98-107); CREATININE 0.8 mg/dL (0.6-1.3); GLUCOSE 105 mg/dL (74-106); POTASSIUM 4.5 mmol/L (3.5-5.1); SODIUM SERUM 139 mmol/L (136-145); UREA NITROGEN, BLOOD 16 mg/dL (7-18)
[2023-04-10 19:41] LABS: *BILIRUBIN,URIN NEGATIVE (NEGATIVE); *BLOOD, URINE 2+ (NEGATIVE); *CLARITY,URINE CLEAR (CLEAR); *COLOR,URINE YELLOW (YELLOW); *KETONES,URINE NEGATIVE (NEGATIVE); *PROTEIN,URINE NEGATIVE (NEGATIVE); *UROBILINOGEN,URINE 0.2 E.U./dl (NORMAL); LEUKOCYTE ESTERASE ,URINE NEGATIVE (NEGATIVE); NITRITE, URINE NEGATIVE (NEGATIVE); PH,URINE 7.5 (5.0-8.0); UGLUCOSE NEGATIVE (NEGATIVE)
[2023-04-10 19:44] LABS: BACTERIA,URINE NONE SEEN /HPF (NONE SEEN); RBC,URINE 20-50 /HPF (0-3); SQUAMOUS EPITHELIAL CELL,UR FEW /HPF (NONE SEEN); WBC,URINE 0-3 /HPF (0-3)
[2023-04-10 19:50] LABS: ALANINE AMINOTRANSFERASE 19 U/L (14-59); ALBUMIN 3.6 g/dL (3.4-5.0); ALKALINE PHOSPHATASE 70 U/L (50-136); ASPARTATE AMINOTRANSFERASE 21 U/L (15-37); BILIRUBIN,DIRECT < 0.1 mg/dL (0.0-0.2); BILIRUBIN,TOTAL 0.3 mg/dL (0.2-1.0); LIPASE 325 U/L (73-393); TOTAL PROTEIN, SERUM 7.2 g/dL (6.4-8.2)
[2023-04-10] MEDS ORDERED: FAMO10TA41 PO (20:51)
[2023-04-10 21:09] VITALS: BP 155/78; O2SAT 99
== END 2023-04-10 21:09 | disposition home or self-care (01) ==
LOC: ER 17:17
DX: R10.12 Left upper quadrant pain (principal); I25.10 Atherosclerotic heart disease of native coronary artery without angina pectoris; Z90.49 Acquired absence of other specified parts of digestive tract; Z88.5 Allergy status to narcotic agent; Z79.899 Other long term (current) drug therapy
CPT/HCPCS: 99285; 74176; 80076; 80048; 81001; 83690; 85025; 36415; 96372; J1885; A4663

== ENCOUNTER 2023-04-19 20:26 | Emergency (ER) | payer MEDICARE, OTHER ==
[~2023-04-19] VITALS: Ht 144.8 cm; Wt 36.3 kg
[~2023-04-19 20:26] MED LIST changes: +FAMO10TA41 PO
[2023-04-19] MEDS ORDERED: KETOROLAC TROMETHAMINE 30 MG INJ ONE (21:08)
[2023-04-19] MEDS ORDERED: KETOROLAC TROMETHAMINE 30 MG INJ IM ONE (21:15)
[2023-04-19] MEDS ORDERED: FAMOTIDINE 20 MG TABLET ONE (21:38)
[2023-04-19] MEDS ORDERED: SIMETHICONE 80 MG TAB.CHEW ONE (21:39)
[2023-04-19] MEDS ORDERED: FAMOTIDINE 20 MG TABLET PO ONE (21:45)
[2023-04-19] MEDS ORDERED: SIMETHICONE 80 MG TAB.CHEW PO ONE (21:45)
[2023-04-19 21:47] VITALS: BP 176/87; O2SAT 100
[2023-04-19] MEDS ORDERED: FAMO-132 PO (21:48)
== END 2023-04-19 21:48 | disposition left against medical advice (07) ==
LOC: ER 20:37
DX: R10.13 Epigastric pain (principal); G89.29 Other chronic pain; I25.10 Atherosclerotic heart disease of native coronary artery without angina pectoris; Z88.5 Allergy status to narcotic agent; Z90.49 Acquired absence of other specified parts of digestive tract; Z79.899 Other long term (current) drug therapy
CPT/HCPCS: 99283; 96372; J1885; A4663

== ENCOUNTER 2023-04-26 17:59 | Inpatient (IN) | payer MEDICARE, OTHER ==
[~2023-04-26] VITALS: Ht 144.8 cm; Wt 38.6 kg
[2023-04-26 19:15] VITALS: O2SAT 95
[2023-04-26] MEDS ORDERED: IV NORMAL SALINE 500 ML BAG IV ONE (19:30)
[2023-04-26 19:39] LABS: BASOPHILS % (AUTO) 0.3 % (0.0-2.0); EOSINOPHILS # (AUTO) 0.1 K/uL (0.0-0.7); EOSINOPHILS % (AUTO) 0.6 % (0.0-7.0); HEMOGLOBIN 12.2 g/dL (10.9-14.3); LYMPHOCYTES # (AUTO) 0.7 K/uL (0.8-4.8); LYMPHOCYTES % (AUTO) 6.6 % (20.5-51.5); MEAN CORPUSCULAR HEMOGLOBIN 29.6 uug (24.7-32.8); MEAN CORPUSCULAR HGB CONC 32 g/dL (32.3-35.6); MONOCYTES # (AUTO) 0.5 K/uL (0.1-1.30); MONOCYTES % (AUTO) 5.2 % (0.0-11.0); NEUTROPHILS # (AUTO) 9.2 K/uL (1.8-8.9); NEUTROPHILS % (AUTO) 87.3 % (38.5-71.5); PLATELET COUNT (AUTO) 214 K/uL (179-408); RED BLOOD CELL COUNT(AUTO) 4.13 MIL/uL (3.63-4.92); RED CELL DISTRIBUTION WIDTH 15.4 % (12.3-17.7); WHITE BLOOD COUNT (AUTO) 10.5 K/uL (3.8-11.8)
[2023-04-26 19:46] LABS: DIFFERENTIAL COMMENT 1
[2023-04-26 19:52] LABS: CREATININE 0.8 mg/dL (0.6-1.3); POTASSIUM 4.3 mmol/L (3.5-5.1)
[2023-04-26 20:06] LABS: BILIRUBIN,DIRECT 0.2 mg/dL (0.0-0.2); BILIRUBIN,TOTAL 0.5 mg/dL (0.2-1.0); TOTAL PROTEIN, SERUM 7.3 g/dL (6.4-8.2)
[2023-04-26] MEDS ORDERED: LORAZEPAM 2 MG/1 ML VIAL ONE (20:53)
[2023-04-26] MEDS ORDERED: LORAZEPAM 2 MG/1 ML VIAL IV ONE (21:00)
[2023-04-26] MEDS ORDERED: LIDOCAINE 2% (GLYDO= UROJET) 10 ML JELLY MM ONE ×2 (21:04→21:45)
[2023-04-26 21:21] LABS: *BILIRUBIN,URIN NEGATIVE (NEGATIVE); *BLOOD, URINE 2+ (NEGATIVE); *CLARITY,URINE CLEAR (CLEAR); *COLOR,URINE YELLOW (YELLOW); *KETONES,URINE NEGATIVE (NEGATIVE); *PROTEIN,URINE 1+ (NEGATIVE); *UROBILINOGEN,URINE 0.2 E.U./dl (NORMAL); LEUKOCYTE ESTERASE ,URINE NEGATIVE (NEGATIVE); NITRITE, URINE NEGATIVE (NEGATIVE); PH,URINE 8.5 (5.0-8.0); UGLUCOSE NEGATIVE (NEGATIVE)
[2023-04-26 21:37] LABS: WBC,URINE NONE SEEN /HPF (0-3)
[2023-04-26 21:38] LABS: BACTERIA,URINE FEW /HPF (NONE SEEN); SQUAMOUS EPITHELIAL CELL,UR MODERATE /HPF (NONE SEEN)
[2023-04-26 21:39] LABS: URINE AMORPHOUS URATE MANY /HPF
[2023-04-26] MEDS ORDERED: ONDANSETRON 4 MG/2 ML VIAL IV PRN (23:15)
[2023-04-26] MEDS ORDERED: ACETAMINOPHEN 325 MG TABLET PO PRN (23:15)
[2023-04-26] MEDS ORDERED: BENZOCAINE 20% TOPICAL SPRAY 59.2 ML MM ONE (23:15)
[2023-04-26] MEDS ORDERED: MORPHINE SULFATE 2 MG/1 ML DISP.SYRIN IV PRN (23:15)
[2023-04-26] MEDS ORDERED: MAGNESIUM HYDROXIDE 30 ML LIQUID UDC PO PRN (23:15)
[2023-04-26 23:35] VITALS: BP 159/71; TEMP 98.2
[2023-04-26] MEDS: LORAZEPAM 2 MG/1 ML VIAL IV PRN (23:55)
[2023-04-26] MEDS: IV NS 1000 ML 1,000 ML IV PRN (23:55)
[2023-04-27 06:29] LABS: BASOPHILS % (AUTO) 0.3 % (0.0-2.0); EOSINOPHILS # (AUTO) 0.1 K/uL (0.0-0.7); EOSINOPHILS % (AUTO) 1.9 % (0.0-7.0); HEMATOCRIT 32.7 % (31.2-41.9); HEMOGLOBIN 10.7 g/dL (10.9-14.3); LYMPHOCYTES # (AUTO) 0.6 K/uL (0.8-4.8); LYMPHOCYTES % (AUTO) 11.3 % (20.5-51.5); MEAN CORPUSCULAR HEMOGLOBIN 30.3 uug (24.7-32.8); MEAN CORPUSCULAR HGB CONC 33 g/dL (32.3-35.6); MEAN CORPUSCULAR VOLUME 93.2 fL (75.5-95.3); MONOCYTES # (AUTO) 0.4 K/uL (0.1-1.30); MONOCYTES % (AUTO) 7.5 % (0.0-11.0); PLATELET COUNT (AUTO) 160 K/uL (179-408); RED BLOOD CELL COUNT(AUTO) 3.51 MIL/uL (3.63-4.92); WHITE BLOOD COUNT (AUTO) 5.1 K/uL (3.8-11.8)
[2023-04-27 06:57] LABS: DIFFERENTIAL COMMENT 1
[2023-04-27 07:23] LABS: CALCIUM 8.4 mg/dL (8.5-10.1); CARBON DIOXIDE 30 mmol/L (21-32); CHLORIDE 106 mmol/L (98-107); CHOLESTEROL 140 mg/dL (<200); CREATININE 0.6 mg/dL (0.6-1.3); GLUCOSE 82 mg/dL (74-106); HDL CHOLESTEROL 66 mg/dL (40-60); MAGNESIUM 2.2 mg/dL (1.8-2.4); PHOSPHOROUS 3.6 mg/dL (2.5-4.9); POTASSIUM 4.2 mmol/L (3.5-5.1); SODIUM SERUM 142 mmol/L (136-145); TRIGLYCERIDES 49 MG/DL (30-150); UREA NITROGEN, BLOOD 13 mg/dL (7-18)
[2023-04-27] MEDS ORDERED: PANTOPRAZOLE SODIUM 40 MG VIAL IV SCH (09:00)
[2023-04-27 12:00] VITALS: BP 142/52; TEMP 98.3
[2023-04-27] MEDS ORDERED: LOSA50TA39 PO (12:25)
[2023-04-27] MEDS ORDERED: DICY10CA13 PO (12:25)
[2023-04-27] MEDS ORDERED: DIATR MEGLU/DIATRIZOATE SODIUM 30 ML BOTTLE ONE (12:36)
[2023-04-27] MEDS: IV NS 1000 ML 1,000 ML IV PRN (13:36)
[2023-04-27] MEDS: LORAZEPAM 2 MG/1 ML VIAL IV PRN (13:43)
== END 2023-04-27 14:35 | disposition left against medical advice (07) | DRG 389 ==
LOC: ER 17:59 → MEDSURG3 22:28
PROVIDERS: ADMIT Nurse Practitioner Acute Care; ATTEND Nurse Practitioner Acute Care
PROC: 0D9670Z Drainage of Stomach with Drainage Device, Via Natural or Artificial Opening (ICD-10-PCS; principal; 2023-04-26)
DX: K56.600 Partial intestinal obstruction, unspecified as to cause (principal); K50.90 Crohn's disease, unspecified, without complications; M48.56XA Collapsed vertebra, not elsewhere classified, lumbar region, initial encounter for fracture; M48.54XA Collapsed vertebra, not elsewhere classified, thoracic region, initial encounter for fracture; K56.7 Ileus, unspecified; E86.0 Dehydration; Z90.49 Acquired absence of other specified parts of digestive tract; K57.30 Diverticulosis of large intestine without perforation or abscess without bleeding; Z53.29 Procedure and treatment not carried out because of patient's decision for other reasons; I25.10 Atherosclerotic heart disease of native coronary artery without angina pectoris; Z88.6 Allergy status to analgesic agent; Z79.899 Other long term (current) drug therapy; Z28.310 Unvaccinated for COVID-19
CPT/HCPCS: 36415; 71045; 83690; 83735; 84100; 85025; A4663; C9113; G0378; J2060; J7040; Q9963

== ENCOUNTER 2023-05-05 17:34 | Emergency (ER) | payer MEDICARE, OTHER ==
[~2023-05-05] VITALS: Ht 152.4 cm; Wt 49.9 kg
[~2023-05-05 17:34] MED LIST changes: -FAMO-132 PO; -FAMO10TA41 PO; -LACT10SO58 PO; -LORA0.5T48 PO; -ONDA4TAB5 PO
[2023-05-05] MEDS ORDERED: IV NORMAL SALINE 1000 ML BAG IV ONE (19:00)
[2023-05-05] MEDS ORDERED: ONDANSETRON 4 MG/2 ML VIAL IV ONE (19:00)
[2023-05-05] MEDS ORDERED: HYDROMORPHONE 1 MG/1 ML DISP.SYRIN IV ONE (19:00)
[2023-05-05 19:02] LABS: *BILIRUBIN,URIN NEGATIVE (NEGATIVE); *BLOOD, URINE 3+ (NEGATIVE); *KETONES,URINE NEGATIVE (NEGATIVE); *PROTEIN,URINE NEGATIVE (NEGATIVE); *UROBILINOGEN,URINE 0.2 E.U./dl (NORMAL); LEUKOCYTE ESTERASE ,URINE NEGATIVE (NEGATIVE); NITRITE, URINE NEGATIVE (NEGATIVE); PH,URINE 7.5 (5.0-8.0); UGLUCOSE NEGATIVE (NEGATIVE)
[2023-05-05 19:09] LABS: *CLARITY,URINE HAZY (CLEAR); *COLOR,URINE LIGHT YELLOW (YELLOW)
[2023-05-05 19:19] LABS: BACTERIA,URINE NONE SEEN /HPF (NONE SEEN); RBC,URINE 50-80 /HPF (0-3); SQUAMOUS EPITHELIAL CELL,UR FEW /HPF (NONE SEEN); WBC,URINE 0-3 /HPF (0-3)
[2023-05-05] MEDS ORDERED: ONDA4TAB5 PO (19:53)
[2023-05-05] MEDS ORDERED: HYDR-3980 PO (19:53)
[2023-05-05] MEDS ORDERED: LORA0.5T48 PO (20:13)
[2023-05-05 20:44] VITALS: BP 117/70; O2SAT 99
== END 2023-05-05 20:44 | disposition home or self-care (01) ==
LOC: ER 17:48
DX: R10.84 Generalized abdominal pain (principal); I25.10 Atherosclerotic heart disease of native coronary artery without angina pectoris; Z90.49 Acquired absence of other specified parts of digestive tract; Z88.5 Allergy status to narcotic agent; Z79.2 Long term (current) use of antibiotics; Z79.899 Other long term (current) drug therapy
CPT/HCPCS: 74021; 93005; A4663

== ENCOUNTER 2023-07-26 04:54 | Emergency (ER) | payer MEDICARE, OTHER ==
[~2023-07-26 04:54] MED LIST changes: +HYDR-3980 PO; +LORA0.5T48 PO; +ONDA4TAB5 PO
== END 2023-07-26 05:42 | disposition left against medical advice (07) ==
LOC: ER 04:57
DX: Z53.21 Procedure and treatment not carried out due to patient leaving prior to being seen by health care provider (principal)

== ENCOUNTER 2023-08-09 09:11 | Emergency (ER) | payer MEDICARE, OTHER ==
[~2023-08-09] VITALS: Ht 152.4 cm; Wt 49.9 kg
[2023-08-09 09:17] VITALS: O2SAT 98
[2023-08-09] MEDS ORDERED: IV NORMAL SALINE 1000 ML BAG IV ONE (09:30)
[2023-08-09 10:06] LABS: ALANINE AMINOTRANSFERASE 31 U/L (14-59); ALBUMIN 3.8 g/dL (3.4-5.0); ALKALINE PHOSPHATASE 69 U/L (50-136); ASPARTATE AMINOTRANSFERASE 28 U/L (15-37); BILIRUBIN,DIRECT 0.1 mg/dL (0.0-0.2); BILIRUBIN,TOTAL 0.5 mg/dL (0.2-1.0); CALCIUM 9.9 mg/dL (8.5-10.1); CARBON DIOXIDE 30 mmol/L (21-32); CHLORIDE 104 mmol/L (98-107); CREATININE 0.7 mg/dL (0.6-1.3); GLUCOSE 105 mg/dL (74-106); SODIUM SERUM 140 mmol/L (136-145); TOTAL PROTEIN, SERUM 7.6 g/dL (6.4-8.2); UREA NITROGEN, BLOOD 14 mg/dL (7-18)
[2023-08-09 10:09] LABS: DIFFERENTIAL COMMENT 0; LYMPHOCYTES # (AUTO) 0.6 K/uL (0.8-4.8); MEAN CORPUSCULAR VOLUME 87.4 fL (75.5-95.3); MONOCYTES # (AUTO) 0.3 K/uL (0.1-1.30)
[2023-08-09 10:12] LABS: BASOPHILS % (AUTO) 0.4 % (0.0-2.0); EOSINOPHILS % (AUTO) 0.5 % (0.0-7.0); HEMATOCRIT 37.6 % (31.2-41.9); HEMOGLOBIN 12.1 g/dL (10.9-14.3); LYMPHOCYTES % (AUTO) 10.8 % (20.5-51.5); MEAN CORPUSCULAR HEMOGLOBIN 28.1 uug (24.7-32.8); MEAN CORPUSCULAR HGB CONC 32 g/dL (32.3-35.6); MONOCYTES % (AUTO) 5.4 % (0.0-11.0); NEUTROPHILS # (AUTO) 4.6 K/uL (1.8-8.9); NEUTROPHILS % (AUTO) 82.9 % (38.5-71.5); PLATELET COUNT (AUTO) 190 K/uL (179-408); RED CELL DISTRIBUTION WIDTH 17.7 % (12.3-17.7); WHITE BLOOD COUNT (AUTO) 5.6 K/uL (3.8-11.8)
[2023-08-09 10:27] LABS: *BILIRUBIN,URIN NEGATIVE (NEGATIVE); *BLOOD, URINE 3+ (NEGATIVE); *CLARITY,URINE CLEAR (CLEAR); *COLOR,URINE YELLOW (YELLOW); *KETONES,URINE NEGATIVE (NEGATIVE); *PROTEIN,URINE NEGATIVE (NEGATIVE); *UROBILINOGEN,URINE 0.2 E.U./dl (NORMAL); LEUKOCYTE ESTERASE ,URINE 1+ (NEGATIVE); NITRITE, URINE NEGATIVE (NEGATIVE); UGLUCOSE NEGATIVE (NEGATIVE)
[2023-08-09] MEDS ORDERED: NA P133E RC (11:08)
[2023-08-09] MEDS ORDERED: POLY17PO4 PO (11:08)
[2023-08-09 12:09] LABS: BACTERIA,URINE RARE /HPF (NONE SEEN); SQUAMOUS EPITHELIAL CELL,UR MODERATE /HPF (NONE SEEN)
[2023-08-09 15:47] LABS: LIPASE 58 U/L (16-77)
== END 2023-08-09 13:01 | disposition home or self-care (01) ==
LOC: ER 09:11
DX: K59.00 Constipation, unspecified (principal); R10.84 Generalized abdominal pain; I25.10 Atherosclerotic heart disease of native coronary artery without angina pectoris; Z90.49 Acquired absence of other specified parts of digestive tract; Z79.899 Other long term (current) drug therapy; Z88.5 Allergy status to narcotic agent
CPT/HCPCS: 99284; 74176; 96360; 80076; 80048; 81001; 83690; 85025; 36415; 87086; J7040; A4606; A4663